=== PATIENT | female | born 1990 | race Caucasian/White ===

== ENCOUNTER → 2016-09-20 | Outpatient (CLI) | payer MEDICAID ==
--- OUTSIDE RECORDS SUMMARY | 2016-09-20 10:13 | XMS REPORT ---
Author Author Anjana Stein [facility] Address [address] [place], [place] [id number] Care Team Providers Care Jig Worker Name Role Phone Anjana Stein PCP Unavailable Allergies and Adverse Reactions Name Reaction Notes Tylenol Arthritis Pain rash (pt can take plain Tylenol) Plan of Treatment Not available. Medications Active Name Start Date Estimated Completion Date SIG Comments Vitamin oral tablet take 1 tablet by oral route once daily loratadine 10 mg oral tablet 05/21/2015 take 1 tablet (10 mg) by oral route once daily Concept OB 85-1 mg oral capsule 07/02/2015 take 1 capsule by oral route once daily hydrocortisone valerate 0.2 % topical cream 07/28/2015 apply to the affected area(s) by topical route 2 times per day Name Start Date Expiration Date SIG Comments Metrogel Vaginal 0.75 % vaginal gel 04/21/2015 04/26/2015 insert 1 applicatorful (37.5 mg) by vaginal route once daily at bedtime for 5 days Problem List Not available. Vital Signs Date Time BP-Sys(mm[Hg] BP-Sue(mm[Hg]) HR(bpm) RR(rpm) Temp WT HT HC BMI BSA BMI Percentile O2 Sat(%) 04/07/2015 9:16:00 AM 117 mmHg 71 mmHg 84 bpm 98.4 F 118.375 lbs 62 in 21.65 kg/m2 1.53 m2 Social History Name Description Comments Tobacco Current every day smoker Alcohol Current some day Denies illicit substance abuse History of Procedures Date Ordered Description Order Status 07/16/2015 12:00 AM OB US >/=14 WKS SNGL FETUS Returned 04/07/2015 12:00 AM CYTOPATH C/V THIN LAYER Returned 04/07/2015 12:00 AM SPECIMEN HANDLING OFFICE-LAB Reviewed 04/07/2015 12:00 AM N.GONORRHOEAE DNA AMP PROB Returned 04/07/2015 12:00 AM CHLAMYDIA CULTURE Returned 04/07/2015 12:00 AM HIV-1ANTIBODY Returned 04/07/2015 12:00 AM URINALYSIS AUTO W/SCOPE Returned 04/07/2015 12:00 AM OBSTETRIC PANEL Returned 04/21/2015 12:00 AM URINALYSIS AUTO W/SCOPE Returned 04/21/2015 12:00 AM DRUG SCREEN CLASS LIST A Returned Results Summary Data and Description Results 04/07/2015 10:15 AM WBC 5.4 RBC 4.16 HGB 13.0 g/dLHCT 37.10 %MCV 89.0 fLMCH 31.30 pgMCHC 35.0 g/dLRDW CV 12.20 %MPV 10.30 fLPLT 249 %NEUT 53.10 %%LYMP 36.0 %%MONO 9.60 %%EOS 1.10 %%BASO 0.20 %#NEUT 2.87 #LYMP 1.95 #MONO 0.52 #EOS 0.06 # BASO 0.01 COLOR YELLOW APPEARANCE CLEAR SPEC GRAV <=1.005 pH 6.0 PROTEIN NEGATIVE GLUCOSE NEGATIVE mg/dLKETONE NEGATIVE BILIRUBIN NEGATIVE BLOOD NEGATIVE NITRITE NEGATIVE LEUK SCREEN NEGATIVE CASTS/LPF NEGATIVE /LPFCRYSTALS NEGATIVE MUCOUS THRDS FEW BACTERIA FEW EPITH CELLS 1+ SQUAMOUS /HPFTRICHOMONAS NEGATIVE YEAST NEGATIVE HIV AG/AB COMBO 0.08 RPR Non Reactive HBsAg Screen Negative Rubella Antibodies, IgG 3.43 Index 04/21/2015 3:37 PM COLOR YELLOW APPEARANCE CLOUDY SPEC GRAV 1.015 pH 8.0 PROTEIN NEGATIVE GLUCOSE NEGATIVE mg/dLKETONE NEGATIVE BILIRUBIN NEGATIVE BLOOD NEGATIVE NITRITE NEGATIVE LEUK SCREEN NEGATIVE History Of Immunizations Not available. History of Past Illness Name Date of Onset Comments *No known medical problems Care, Other Normal Apr 07 2015 9:18AM Antepartum tobacco use same as before Apr 07 2015 9:18AM , Other Normal Apr 21 2015 11:24AM Normal , second trimester Jun 04 2015 2:47PM Normal Jun 04 2015 3:10PM Payers Insurance Name Company Name Plan Name Plan Number Policy Number Policy Group Number Start Date [facility] Comm [id number] N/A History of Encounters Visit Date Visit Type Provider 09/16/[address] Anjana Stein MD 08/25/2015 Office visit Giselle Gilman PRESS SET UP 07/28/[address] Anjana Stein MD 06/30/2015 Office visit Giselle Gilman PRESS SET UP 06/30/2015 Voided Roxanna Norman MD 06/04/2015 Office visit ROXANNA NORMAN MD 05/06/2015 Office visit ROXANNA NORMAN MD 04/21/2015 Office visit ROXANNA NORMAN MD 04/07/[address] SARAH NUÑEZ MD
--- NOTE | 2016-09-20 11:11 | Diagnostic Imaging Report ---
First trimester OB ultrasound. INDICATION: Dating. FINDINGS: There is a normal-appearing single intrauterine . An embryo is seen with cardiac activity at 146 beats per minute. The growth parameters are all around 14 weeks and 2 days. ROXY is 03/19/17. The ovaries are obscured by bowel loops. IMPRESSION: Live single intrauterine . Dictated by: Dictated on workstation # [id number]
== END ==
LOC: RAD 10:08
PROVIDERS: ATTEND Family Medicine
DX: Z34.81 Encounter for supervision of other normal pregnancy, first trimester (principal)
CPT/HCPCS: 76801

== ENCOUNTER → 2016-11-11 | Outpatient (CLI) | payer MEDICAID ==
--- NOTE | 2016-11-11 17:59 | Diagnostic Imaging Report ---
INDICATION: survey. COMPARISON: Comparison with previous ultrasound of 09/20/2016. FINDINGS: Single live intrauterine fetus. Vertex presentation. heart rate of 138 beats per minute. Placenta is fundal with no evidence of abruption. anatomical survey is normal with three-vessel cord demonstrated. Amniotic fluid index is normal. Biometric measurements are BPD 5.14 cm, head circumference 19.3 cm, abdominal circumference 17 cm, femur length 3.66 cm. Estimated weight is 451 g. IMPRESSION: A 21 weeks 5 days live intrauterine by previous ultrasound. There has been normal growth in the interim. Fetus is approximately at the 50th percentile for size. Dictated by: Dictated on workstation # [id number]
== END ==
LOC: RAD 15:14
PROVIDERS: ATTEND Family Medicine
DX: Z34.82 Encounter for supervision of other normal pregnancy, second trimester (principal)
CPT/HCPCS: 76805

== ENCOUNTER 2017-03-08 08:03 | Outpatient (CLI) | payer MEDICAID ==
[~2017-03-08] VITALS: Ht 157.5 cm; Wt 69.4 kg
[2017-03-08 08:14] VITALS: BP 131/77
[2017-03-08 09:27] VITALS: BP 117/65
[2017-03-08] MEDS ORDERED: PREN1TAB86 PO (19:20)
[2017-03-08] MEDS ORDERED: METR500T PO (19:22)
--- NOTE | 2017-03-09 08:53 | Physician Query-Final Dx ---
NEERAJ CASANOVA 03/09/17 0853: Clinic Account Progress/Dx Physician Query: Please give diagnosis Date of Service Mar 08, 2017 at 08:03 TARYN MADRIGAL MD 03/09/17 1028: Clinic Account Progress/Dx DIAGNOSIS: Diagnosis 38 week gestation TIUP Leaking fluid- ROM testing negative NEERAJ CASANOVA Mar 09, 2017 08:53 TARYN MADRIGAL MD Mar 09, 2017 10:28
[2017-03-09] MEDS ORDERED: IBUP-1773 PO (16:40)
== END 2017-03-08 09:51 | disposition home or self-care (01) ==
LOC: LDRP 08:03 → WSo 08:03
PROVIDERS: ATTEND Family Medicine
DX: Z34.83 Encounter for supervision of other normal pregnancy, third trimester (principal)
CPT/HCPCS: 87210; 99214

== ENCOUNTER 2017-03-08 17:07 | Inpatient (IN) | payer MEDICAID ==
[~2017-03-08] VITALS: Ht 157.5 cm; Wt 68.9 kg
[2017-03-08] VITALS (14 sets, daily range): BP systolic 102–147; BP diastolic 51–80
[2017-03-08] MEDS ORDERED: D5 LR IV SOLUTION 1,000 ML IV ONE (17:36)
[2017-03-08] MEDS ORDERED: MINERAL OIL CONCENTRATE 99.9% 15 ML UDC TOP PRN (18:00)
[2017-03-08] MEDS: D5 LR IV SOLUTION 1,000 ML IV SCH ×2 (18:10→22:30)
[2017-03-08 18:33] LABS: BASOPHILS % (AUTO) 0 % (0-10); EOSINOPHILS # (AUTO) 0.1 10^3/uL (0.0-0.3); EOSINOPHILS % (AUTO) 1 % (0-10); LYMPHOCYTES # (AUTO) 1.7 X 10^3 (1.0-4.0); LYMPHOCYTES % (AUTO) 17 % (12-44); MEAN CORPUSCULAR HEMOGLOBIN 29 PG (25-34); MEAN CORPUSCULAR HGB CONC 33 G/DL (32-36); MEAN CORPUSCULAR VOLUME 87 FL (80-99); MONOCYTES # (AUTO) 0.8 X 10^3 (0.0-1.0); MONOCYTES % (AUTO) 8 % (0-12); NEUTROPHILS # (AUTO) 7.3 X 10^3 (1.8-7.8); NEUTROPHILS % (AUTO) 74 % (42-75); PLATELET COUNT 190 10^3/uL (130-400); RED BLOOD COUNT 3.98 10^6/uL (4.35-5.85); RED CELL DISTRIBUTION WIDTH 12.5 % (10.0-14.5); WHITE BLOOD COUNT 9.9 10^3/uL (4.3-11.0)
[2017-03-08] MEDS ORDERED: PREN1TAB86 PO (19:20)
[2017-03-08] MEDS ORDERED: METR500T PO (19:22)
[2017-03-08] MEDS ORDERED: OXYTOCIN/NORMAL SALINE 500 ML IV ONE (21:03)
[2017-03-08] MEDS ORDERED: LIDOCAINE/EPI 1%-1:200,000 (XYLOCAINE) 30 ML VIAL ONE (21:03)
[2017-03-08] MEDS: OXYTOCIN/NORMAL SALINE 500 ML IV SCH (21:11)
--- NOTE | 2017-03-08 21:28 | History & Physical-OB ---
OB - Chief Complaint & HPI Date/Time Date of Admission: Date of Admission: Mar 08, 2017 at 5:52 pm Time Seen by Provider: 21:10 Chief Complaint/History OB-Reason for Admission/Chief: Rupture of Membranes Hx : 4 Hx Para: 3 Expected Date of Delivery: Mar 19, 2017 Gestational Age in Weeks: 38 Gestational Age in Days: 4 Other reason for admission: Patient was walking around this afternoon and had large gush of fluid. No contractions before arrival. History of Labs A+, antibody neg. RI. HepB/HIV/RPR NR. GC/chlamydia neg. GBS neg. Allergies and Home Medications Allergies Coded Allergies: Acetaminophen (Unverified Allergy, Unknown, 03/19/11) Home Medications Metronidazole 500 Mg Tablet, 500 MG PO BID, (Reported) Vit W-Ca,Fe,FA(<1 mg) 1 Each Tablet, 1 EACH PO DAILY, (Reported) OB - History Hx of Present Care: Yes Ultrasounds: Normal mid trimester US Obstetrical Complications: None Medical Complications: Other (chronic skin changes) Other Concerns: History of THC use, reportedly stopped when learning of Obstetrical History Hx : 4 Hx Para: 3 Hx # Term Pregnancies: 3 Hx # Pregnancies: 0 Number of Living Children: 3 Hx Termination: No Hx Multiple Gestation: No Hx Ectopic : No Hx Stillbirth: No Hx Complication: No Hx Induced Hypertens: No Hx Maternal Gestational Diabet: No Hx Hemorrhage: No Delivery History Hx Dystocia: No Hx Forceps Assisted Delivery: No Hx Vacuum Extraction Assisted: No Hx Placenta Abnormality: No Hx Distress: No Hx Large For Gestational Age I: No Hx Small for Gestational Age I: No Hx Section: No Hx Vaginal Delivery Post C-Sec: No Hx Blood Disorders: No Adverse Rxn to Tranfusion: No Patient Past Medical History No significant Social History/Family History HIV/AIDS: No Recent Infectious Disease Expo: No Sexually Transmitted Disease: Yes (CHLAMYDIA 2010-TREATED) Alcohol Use: Denies Use Recreational Drug Use: No Smoking Cessation: Current every day smoker Immunizations Hepatitis A: No Hepatitis B: No Tetanus Booster (TDap): Less than 5yrs Rubella: immune RPR/VDRL: Negative GBS Status: Negative HBsAG: Negative OB - Admission Exam Physical Exam Time Seen by Provider: 21:10 Vitals: Vital Signs 03/08/17 03/08/17 17:24 18:54 Temp 98.7 Pulse 88 Resp 18 B/P (MAP) 118/67 Pulse Ox 97 O2 Delivery Room Air HEENT: NCAT Abdomen: Non tender Extremities: Normal Cervical Dilatation: 6cm Effacement: 50% Station: -3 Membranes: Ruptured Amniotic Fluid: Clear Heart Rate: 130's Decelerations: Variable Decelerations Short Term Variability: Present Senior Living Variability: Average (6-25) Contractions on Admission: 6-10 Minutes Apart Intensity: Mild Labs Laboratory Tests Test 03/08/17 18:10 Range/Units White Blood Count 9.9 4.3-11.0 10^3/uL Red Blood Count 3.98 L 4.35-5.85 10^6/uL Hemoglobin 11.5 11.5-16.0 G/DL Hematocrit 35 35-52 % Mean Corpuscular Volume 87 80-99 FL Mean Corpuscular Hemoglobin 29 25-34 PG Mean Corpuscular Hemoglobin Concent 33 32-36 G/DL Red Cell Distribution Width 12.5 10.0-14.5 % Platelet Count 190 130-400 10^3/uL Mean Platelet Volume 11.0 H 7.4-10.4 FL Neutrophils (%) (Auto) 74 42-75 % Lymphocytes (%) (Auto) 17 12-44 % Monocytes (%) (Auto) 8 0-12 % Eosinophils (%) (Auto) 1 0-10 % Basophils (%) (Auto) 0 0-10 % Neutrophils # (Auto) 7.3 1.8-7.8 X 10^3 Lymphocytes # (Auto) 1.7 1.0-4.0 X 10^3 Monocytes # (Auto) 0.8 0.0-1.0 X 10^3 Eosinophils # (Auto) 0.1 0.0-0.3 10^3/uL Basophils # (Auto) 0.0 0.0-0.1 10^3/uL OB - Assessment/Plan/Diagnosis Assessment Assessment: rupture of membranes Plan Plan: Expectant Management Other Plan Expectant management initially with minimal cervical change, start pitocin per protocol Variable decelerations- recurrent, but with good variability between, monitor closely, consider amnioinfusion Copy Copies To 1: TARYN MADRIGAL MD, BETHANY N MD Mar 08, 2017 9:28 pm
[2017-03-08] MEDS ORDERED: CATHETER FLUSH 10 ML SYR IV SCH (22:00)
[2017-03-09] VITALS (42 sets, daily range): BP systolic 88–147; BP diastolic 44–82
[2017-03-09] MEDS ORDERED: LACTATED RINGERS 1,000 ML IV ONE (01:06)
[2017-03-09] MEDS: LACTATED RINGERS 1,000 ML IV ONE (01:33)
--- NOTE | 2017-03-09 02:14 | Physician Progress Note ---
Progress Note Assessment/Plan Date Seen by Provider: Mar 09, 2017 Time Seen by Provider: 01:30 Events since last exam Patient with moderate pain with contractions and urge to urinate, no other complaints currently. Has continued to have recurrent variable decelerations with contractions. For a period while sitting up they were resolved and pitocin was restarted, but after titrated to 8 mu/min, recurrent variable decelerations resumed and pitocin was stopped. Assessment/Plan at 38w5d with SROM at 1630 with failure to progress (remains 6 cm/50/-3 at this time) and recurrent variable decelerations with good variability between contractions. -Decelerations limiting use of pitocin but no cervical change in well over 2 hours, discussed risks and benefits with patient and she agrees to trial of amnioinfusion -IUPC placed without complication and 500 ml bolus of LR given at 10 mls/min, if decelerations improve will restart pitocin and decrease amnioinfusion to 100 mls/hr. Vitals Last set of Vitals Signs Vital Signs Date Time Temp Pulse Resp B/P (MAP) Pulse Ox O2 Delivery O2 Flow Rate FiO2 03/09/17 00:15 96 18 141/76 Room Air 03/08/17 22:30 98.2 03/08/17 17:24 97 Labs Laboratory Tests 03/08/17 18:10: White Blood Count 9.9, Red Blood Count 3.98L, Hemoglobin 11.5, Hematocrit 35, Mean Corpuscular Volume 87, Mean Corpuscular Hemoglobin 29, Mean Corpuscular Hemoglobin Concent 33, Red Cell Distribution Width 12.5, Platelet Count 190, Mean Platelet Volume 11.0H, Neutrophils (%) (Auto) 74, Lymphocytes (%) (Auto) 17 , Monocytes (%) (Auto) 8, Eosinophils (%) (Auto) 1, Basophils (%) (Auto) 0, Neutrophils # (Auto) 7.3, Lymphocytes # (Auto) 1.7, Monocytes # (Auto) 0.8, Eosinophils # (Auto) 0.1, Basophils # (Auto) 0.0 Clinical Quality Measures DVT/VTE Risk/Contraindication: Risk Factor Score Per Nursin RFS Level Per Nursing on Admit: 2=Moderate TARYN MADRIGAL MD Mar 09, 2017 2:14 am
[2017-03-09] MEDS: D5 LR IV SOLUTION 1,000 ML IV SCH (02:40)
[2017-03-09] MEDS ORDERED: SUFENTA 0.6MCG/ML BUPIVA 0.125 100 ML ONE (03:22)
[2017-03-09] MEDS ORDERED: LACTATED RINGERS 1,000 ML IV SCH (04:38)
[2017-03-09] MEDS ORDERED: diphenhydrAMINE 50 MG/ML INJ (BENADRYL) IV PRN (04:45)
[2017-03-09] MEDS ORDERED: METOCLOPRAMIDE INJ 10 MG/2 ML (REGLAN) IV PRN (04:45)
[2017-03-09] MEDS ORDERED: ONDANSETRON 4 MG/2 ML (SDV) Z0FRAN IV PRN (04:45)
[2017-03-09] MEDS ORDERED: NALOXONE 0.4 MG/ML 1 ML (NARCAN) VIAL IV PRN ×2 (04:45)
[2017-03-09] MEDS ORDERED: EPIDURAL (SUFENTA 0.6MCG/ML BUPIVA 0.125%) 100 ML BAG EPI SCH (04:45)
--- NOTE | 2017-03-09 07:19 | OB Labor & Delivery Record ---
Vag Delivery Note Vag Delivery Note Date of Delivery: 03/09/17 Preoperative Diagnosis: Linus Butt is a (24 /Para 4 / 3, Gestational Age (wks)38with 5d Postoperative Diagnosis: Same Surgeon: TARYN MADRIGAL Hunting Sales Leader: Kacey Gross, MS3 Anesthesia: Epidural Delivery Type: spontaneous vaginal Findings: Viable female , apgars 8/9, weight 6#5 Lacerations: none Intact placenta with 3 vessel cord. No nuchal cord, body cord or shoulder dystocia Estimated Blood Loss: 250 ml Complications: None Condition: Stable Description of Procedure: The patient presented after SROM. She was admitted and informed consent was obtained. Her labor course was remarkable for recurrent variable decelerations with contractions and slow cervical change. She progressed to complete dilatation and began to push. She was then set up for delivery. The infant's head was delivered atraumatically in the POONAM position. The shoulders and remainder of the infant's body were then delivered without difficulty. Upon delivery, the was placed on maternal abdomen. The cord was doubly clamped and cut and the was handed off to the pediatric staff. An intact placenta with 3-vessel cord delivered via Heard and there was found to be minimal bleeding.~ Vigorous fundal massage was performed and the fundus was found to be firm. IV oxytocin was given. Examination of the vagina and perineum revealed a periurethral abrasion not requiring repair. Mom and baby were both in stable condition in the labor suite. Vitals - Labs Vital Signs - I&O Vital Signs Date Time Temp Pulse Resp B/P (MAP) Pulse Ox O2 Delivery O2 Flow Rate FiO2 03/09/17 03:00 105 18 130/79 98 Room Air 03/09/17 02:45 99 18 140/82 99 Room Air 03/09/17 02:30 98.4 90 18 129/74 100 Room Air 03/09/17 02:15 86 18 114/54 99 Room Air 03/09/17 02:00 94 18 136/78 99 Room Air 03/09/17 01:45 110 18 118/60 99 Room Air 03/09/17 01:30 103 18 100 Room Air 03/09/17 01:15 90 18 114/59 98 Room Air 03/09/17 01:00 98 18 130/60 100 Room Air 03/09/17 00:45 77 18 129/70 100 Room Air 03/09/17 00:30 103 18 133/72 100 Room Air 03/09/17 00:15 96 18 141/76 Room Air 03/09/17 00:00 82 18 127/72 Room Air 03/08/17 23:45 89 18 128/78 Room Air 03/08/17 23:30 94 18 147/75 Room Air 03/08/17 23:15 18 Room Air 03/08/17 23:00 78 18 121/66 Room Air 03/08/17 22:30 98.2 91 18 106/56 Room Air 03/08/17 22:00 82 18 136/80 Room Air 03/08/17 21:45 18 Room Air 03/08/17 21:30 83 18 115/68 Room Air 03/08/17 21:15 18 Room Air 03/08/17 21:00 85 18 110/66 Room Air 03/08/17 20:30 98.2 71 18 121/61 Room Air 03/08/17 20:00 83 18 116/64 Room Air 03/08/17 19:30 77 18 102/51 Room Air 03/08/17 18:54 88 18 118/67 Room Air 03/08/17 18:25 84 18 124/60 Room Air 03/08/17 17:55 81 18 120/67 Room Air 03/08/17 17:24 98.7 93 18 132/66 97 Room Air Labs Laboratory Tests 03/08/17 18:10: White Blood Count 9.9, Red Blood Count 3.98L, Hemoglobin 11.5, Hematocrit 35, Mean Corpuscular Volume 87, Mean Corpuscular Hemoglobin 29, Mean Corpuscular Hemoglobin Concent 33, Red Cell Distribution Width 12.5, Platelet Count 190, Mean Platelet Volume 11.0H, Neutrophils (%) (Auto) 74, Lymphocytes (%) (Auto) 17 , Monocytes (%) (Auto) 8, Eosinophils (%) (Auto) 1, Basophils (%) (Auto) 0, Neutrophils # (Auto) 7.3, Lymphocytes # (Auto) 1.7, Monocytes # (Auto) 0.8, Eosinophils # (Auto) 0.1, Basophils # (Auto) 0.0 TARYN MADRIGAL MD Mar 09, 2017 7:19 am
[2017-03-09] MEDS: OXYTOCIN/NORMAL SALINE 500 ML IV SCH (07:38)
[2017-03-09] MEDS ORDERED: OXYTOCIN/NORMAL SALINE 500 ML IV SCH (09:24)
[2017-03-09] MEDS ORDERED: BENZOCAINE/MENTHOL (DERMOPLAST) 56 ML CAN TP PRN (09:30)
[2017-03-09] MEDS ORDERED: TETANUS,DIPTH,PERTUSS P/F (BOOSTRIX) 0.5 ML VIAL IM ONE (09:30)
[2017-03-09] MEDS ORDERED: MEASLES,MUMPS,RUBELLA 1 EA INJ SQ ONE (09:30)
[2017-03-09] MEDS ORDERED: WITCH HAZEL(TUCKS) 40 EA JAR TOP PRN (09:30)
[2017-03-09] MEDS: IBUPROFEN 600 MG (MOTRIN) TAB PO SCH ×2 (11:07→18:14)
[2017-03-09] MEDS ORDERED: CATHETER FLUSH 10 ML SYR IV SCH (14:00)
[2017-03-09] MEDS ORDERED: IBUP-1773 PO (16:40)
[2017-03-10] MEDS: IBUPROFEN 600 MG (MOTRIN) TAB PO SCH ×3 (00:22→12:00)
[2017-03-10 00:39] VITALS: BP 125/71
[2017-03-10] MEDS: LACTATED RINGERS 1,000 ML IV ONE (01:33)
[2017-03-10] MEDS ORDERED: PRENATAL VITAMIN 1 EA TAB PO SCH (07:00)
[2017-03-10 07:48] VITALS: BP 113/74
[2017-03-10 08:23] LABS: BASOPHILS % (AUTO) 0 % (0-10); EOSINOPHILS # (AUTO) 0.1 10^3/uL (0.0-0.3); EOSINOPHILS % (AUTO) 1 % (0-10); LYMPHOCYTES # (AUTO) 2.2 X 10^3 (1.0-4.0); LYMPHOCYTES % (AUTO) 30 % (12-44); MEAN CORPUSCULAR HEMOGLOBIN 29 PG (25-34); MEAN CORPUSCULAR HGB CONC 32 G/DL (32-36); MEAN CORPUSCULAR VOLUME 89 FL (80-99); MEAN PLATELET VOLUME 10.7 FL (7.4-10.4); MONOCYTES # (AUTO) 0.7 X 10^3 (0.0-1.0); MONOCYTES % (AUTO) 10 % (0-12); NEUTROPHILS # (AUTO) 4.4 X 10^3 (1.8-7.8); NEUTROPHILS % (AUTO) 60 % (42-75); PLATELET COUNT 151 10^3/uL (130-400); RED BLOOD COUNT 3.63 10^6/uL (4.35-5.85); RED CELL DISTRIBUTION WIDTH 12.6 % (10.0-14.5); WHITE BLOOD COUNT 7.3 10^3/uL (4.3-11.0)
--- NOTE | 2017-03-10 10:51 | Discharge Instructions ---
Discharge Inst-Women's Serv Depart Medications New, Converted or Re-Newed RX: Transmitted to Pharmacy New Medications: Ibuprofen (Ibuprofen) 600 Mg Tablet 600 MG PO Q6H, #60 TAB 0 Refills Continued Medications: Metronidazole (Flagyl) 500 Mg Tablet 500 MG PO BID, TAB Vit W-Ca,Fe,FA(<1 mg) ( Vitamins) 1 Each Tablet 1 EACH PO DAILY, TAB Follow Up/Instructions Goal/Follow Up: Follow up with Dr. Heller in 6 weeks for visit. Activity Activity: Activity as Tolerated (avoid strenuous activity x 6 weeks) Driving Instructions: You May Drive Nothing Inside Vagina: No Douching, No [place], No Tampons Diet Discharge Diet: No Restrictions Symptoms to Report to : Swelling Increased, Bleeding Excessive, Fever Over 101 Degrees F, Pain/Pressure in Chest, Vaginal Bleeding Increase, Cramps in Feet or Legs, Vaginal Discharge Foul, Dizziness/Fainting, Shortness of Breath For Any Problems or Questions: Contact Your Physician Copies To 1: TARYN HELLER MD, BETHANY N MD Mar 09, 2017 4:41 pm
--- NOTE | 2017-03-10 10:56 | Discharge Summary ---
Diagnosis/Chief Complaint Date of Admission Mar 08, 2017 at 17:52 Date of Discharge Mar 10, 2017 Admission Diagnosis Admission Diagnosis Spontaneous premature rupture of membranes Term intrauterine at 38 weeks A+ blood type RI GBS neg Discharge Diagnosis s/p spontaneous vaginal delivery with no perineal lacerations asymptomatic anemia Blood type A+ RI Chief Complaint/HPI Chief Complaint/HPI 26 yo at 38w3d presented to L&D after SROM while shopping just before arrival. No contractions prior to arrival. Discharge Summary-Simple/Stand Procedures Spontaneous vaginal delivery Discharge Physical Examination Allergies: Coded Allergies: Acetaminophen (Unverified Allergy, Unknown, 03/19/11) Vitals & I&Os Vital Sign - Last 12Hours Date Time Temp Pulse Resp B/P (MAP) Pulse Ox O2 Delivery O2 Flow Rate FiO2 03/10/17 00:39 98.4 69 18 125/71 97 Room Air General Appearance: Alert, No Acute Distress Respiratory: Clear to Auscultation, Normal Air Movement Cardiovascular: Regular Rate, No Murmurs Abdominal: Other (fundus firm at umbilicus) Extremities: No Edema Neuro: Normal Speech Psych/Mental Status: Mental Status NL Hospital Course Patient admitted and progressed through labor quite slowly and had variable decelerations throughout with contractions, limiting ability to use pitocin. However, she did eventually progress to complete dilation and delivered vaginally without complication or laceration a viable female with no complications. course uncomplicated, voided, ambulated, tolerated diet without difficulty. Asymptomatic mild anemia not requiring treatment. Discharge Instructions to patient/family Please see electonic discharge instructions given to patient. Discharge Medications Reviewed and agree with Discharge Medication list on patient's Discharge Instruction sheet Clinical Quality Measures DVT/VTE Risk/Contraindication: Risk Factor Score Per Nursin RFS Level Per Nursing on Admit: 2=Moderate Copy Copies To 1: TARYN MADRIGAL MD, BETHANY N MD Mar 10, 2017 10:56
[2017-03-10 13:20] VITALS: BP 114/71
== END 2017-03-10 17:50 | disposition home or self-care (01) | DRG 775 ==
LOC: WSo 17:07 → LDRP 17:07 → WSo 17:52 → LDRP 17:52 → ENPENDDIS 03-10 12:00
PROVIDERS: ADMIT Family Medicine; ATTEND Family Medicine
PROC: 3E0E37Z Introduction of Electrolytic and Water Balance Substance into Products of Conception, Percutaneous Approach (ICD-10-PCS; principal; 2017-03-09)
PROC: 10E0XZZ Delivery of Products of Conception, External Approach (ICD-10-PCS; principal; 2017-03-09)
DX: O76 Abnormality in fetal heart rate and rhythm complicating labor and delivery (principal); O99.333 Smoking (tobacco) complicating pregnancy, third trimester; F17.210 Nicotine dependence, cigarettes, uncomplicated; O99.03 Anemia complicating the puerperium; D64.9 Anemia, unspecified; Z3A.38 38 weeks gestation of pregnancy; Z37.0 Single live birth
CPT/HCPCS: 36415; 85025; 86850; 86900; 86901; 88307; 99212

== ENCOUNTER → 2017-05-26 | Outpatient (CLI) | payer MEDICAID ==
[~2017-05-26] MED LIST: IBUP-1773 PO; METR500T PO; PREN1TAB86 PO
== END ==
LOC: LAB 17:04
PROVIDERS: ATTEND Family Medicine
DX: L95.0 Livedoid vasculitis (principal); L81.0 Postinflammatory hyperpigmentation; L85.3 Xerosis cutis
CPT/HCPCS: 36415; 86038; 86430

== ENCOUNTER → 2018-10-06 | Outpatient (CLI) | payer MEDICAID ==
--- NOTE | 2018-10-06 17:12 | Diagnostic Imaging Report ---
INDICATION: survey. TECHNIQUE: Multiple real-time grayscale images were obtained over the gravid uterus. COMPARISON: None. FINDINGS: There is a single living intrauterine . The fetus is in a cephalic presentation. Placenta is anterior. There is no previa. The biometry correlates with a gestational age of 21 weeks 2 days. Heart rate is 156 beats per minute and regular. Estimated weight is 405 g. The maternal adnexa is unremarkable. There is no free fluid. IMPRESSION: Single living intrauterine with sonographically estimated gestational age of 21 weeks 2 days and estimated date of confinement of 02/14/2019. Biometrical measurements are as follows: Biparietal 5.03 cm, age 21 weeks 2 days. Head circumference 18.98 cm, age 21 weeks 2 days. Abdominal circumference 16.92 cm, age 22 weeks 0 days. Femur length 3.28 cm, age 20 weeks 2 days. Sonographic estimate age: 21 weeks 2 days. Sonographic estimated date of delivery: 02/14/2019. Estimated Weight: 405 gm (+/- 59 gm). LMP percentile: 31%. heart rate: 156 beats per minute. number: 1 of 1. Dictated by: Dictated on workstation # [id number]
== END ==
LOC: RAD 12:07
PROVIDERS: ATTEND Obstetrics & Gynecology
DX: Z36.89 Encounter for other specified antenatal screening (principal); Z3A.21 21 weeks gestation of pregnancy
CPT/HCPCS: 76805

== ENCOUNTER 2019-01-22 20:15 | Outpatient (CLI) | payer MEDICAID ==
[~2019-01-22] VITALS: Ht 157.5 cm; Wt 69.5 kg
--- NOTE | 2019-01-22 20:16 | NUR ---
ALEXANDRIA FRIEDMAN presented to unit via ambulation from ED, accompanied by SO, with c/o CONTRACTIONS. ALEXANDRIA FRIEDMAN weighed, gowned, voided, and to bed. EFHM and TOCO applied, VS taken. ALEXANDRIA FRIEDMAN oriented to bed controls, call light, TV, heat, and A/C controls.
[2019-01-22 20:36] LABS: CLARITY,URINE CLEAR; COLOR,URINE YELLOW; GLUCOSE, URINE (UA) NEGATIVE (NEGATIVE); KETONES,URINE 4+ (NEGATIVE); LEUKOCYTE ESTERASE ,URINE 1+ (NEGATIVE); NITRITE,URINE NEGATIVE (NEGATIVE); PH,URINE 6 (5-9); PROTEIN,URINE 1+ (NEGATIVE); UROBILINOGEN,URINE 1 MG/DL (NORMAL)
[2019-01-22 20:38] VITALS: BP 111/64
[2019-01-22 20:59] LABS: BACTERIA,URINE TRACE /HPF; BILIRUBIN,URINE 1+ (NEGATIVE); WBC,URINE 0-2 /HPF
[2019-01-22] MEDS ORDERED: LACTATED RINGERS 1,000 ML IV SCH (21:30)
[2019-01-22] MEDS ORDERED: CALCIUM CARBONATE 500 MG (TUMS) TAB.CHEW ONE (23:14)
[2019-01-22] MEDS ORDERED: CALCIUM CARBONATE 500 MG (TUMS) TAB.CHEW PO ONE (23:30)
== END 2019-01-22 23:25 | disposition home or self-care (01) ==
LOC: WSo 20:15 → LDRP 20:15 → WSo 23:25
PROVIDERS: ATTEND Obstetrics & Gynecology
DX: O47.03 False labor before 37 completed weeks of gestation, third trimester (principal); Z3A.36 36 weeks gestation of pregnancy
CPT/HCPCS: 81000; 87088; 96360; 99214

== ENCOUNTER 2019-02-06 07:00 | Inpatient (IN) | payer MEDICAID ==
[2019-02-06] VITALS (41 sets, daily range): BP systolic 102–136; BP diastolic 55–86
[~2019-02-06] VITALS: Ht 157.5 cm; Wt 69.9 kg
--- NOTE | 2019-02-06 07:00 | NUR ---
ALEXANDRIA FRIEDMAN presented to unit via AMBULATORY from HOME, accompanied by S/O FOR INDUCTION OF LABOR. ALEXANDRIA FRIEDMAN weighed, gowned, voided, and to bed. EFHM and TOCO applied, VS taken. ALEXANDRIA FRIEDMAN oriented to bed controls, call light, TV, heat, and A/C controls.
[2019-02-06] MEDS ORDERED: D5 LR IV SOLUTION 1,000 ML IV SCH (07:29)
[2019-02-06] MEDS ORDERED: MINERAL OIL CONCENTRATE 99.9% 15 ML UDC TOP PRN (07:30)
[2019-02-06] MEDS ORDERED: D5 LR IV SOLUTION 1,000 ML IV ONE (07:32)
[2019-02-06 08:31] LABS: BASOPHILS % (AUTO) 0 % (0-10); EOSINOPHILS # (AUTO) 0.1 10^3/uL (0.0-0.3); EOSINOPHILS % (AUTO) 1 % (0-10); HEMATOCRIT 31 % (35-52); HEMOGLOBIN 10.6 G/DL (11.5-16.0); LYMPHOCYTES # (AUTO) 2.4 X 10^3 (1.0-4.0); LYMPHOCYTES % (AUTO) 22 % (12-44); MEAN CORPUSCULAR HEMOGLOBIN 31 PG (25-34); MEAN CORPUSCULAR HGB CONC 34 G/DL (32-36); MEAN CORPUSCULAR VOLUME 90 FL (80-99); MEAN PLATELET VOLUME 10.8 FL (7.4-10.4); MONOCYTES % (AUTO) 9 % (0-12); NEUTROPHILS # (AUTO) 7.6 X 10^3 (1.8-7.8); NEUTROPHILS % (AUTO) 68 % (42-75); PLATELET COUNT 195 10^3/uL (130-400); RED CELL DISTRIBUTION WIDTH 13.5 % (10.0-14.5); WHITE BLOOD COUNT 11.1 10^3/uL (4.3-11.0)
--- OUTSIDE RECORDS SUMMARY | 2019-02-06 10:13 | XMS REPORT | CCD ---
Author Author EDGAR THIBODEAUX Unknown Address [address] [address] [place], [place] [id number] Care Team Providers Care Speed Belt Sander Name Role Phone ANJANA DURAN MD Attphys G.ELIJAH NASST A.DEEPA NASST N., DALY NASST Vital Signs Vital Sign Value Unit Date/Time Recent/Initial? Weight Measured 145 lbs 12/01/2015 09:49 Initial VS Height 62 in 12/01/2015 09:49 Initial VS BMI (Body Mass Index) 26.52 kg/m^2 12/01/2015 09:49 Initial VS BSA (Body Surface Area) 1.7 m^2 12/01/2015 09:49 Initial VS BP Systolic 114 mmHg 12/01/2015 09:49 Initial VS BP Diastolic 54 mmHg 12/01/2015 09:49 Initial VS Heart Rate 89 bpm 12/01/2015 09:49 Initial VS Respiratory Rate 18 bpm 12/01/2015 18:41 Initial VS O2 % BldC Oximetry 100 % 12/01/2015 18:41 Initial VS Body Temperature 98.2 degrees 12/01/2015 18:41 Initial VS BP Systolic 123 mmHg 12/03/2015 09:15 Most Recent VS BP Diastolic 76 mmHg 12/03/2015 09:15 Most Recent VS Respiratory Rate 18 bpm 12/03/2015 09:15 Most Recent VS Heart Rate 89 bpm 12/03/2015 09:15 Most Recent VS O2 % BldC Oximetry 100 % 12/03/2015 09:15 Most Recent VS Body Temperature 97.6 degrees 12/03/2015 09:15 Most Recent VS Allergies Allergy Code Allergy Type Reaction Status TYLENOL ARTHRITIS 0 Drug allergy HIVES Active Procedures Procedure Code Procedure Type Date Delivery of Products of Conception, External Approach [id number] ICD- 10 PCS 12/01/[address] 12/02/2015 TYPE AND SCREEN 93163759 SNOMED CT 12/01/2015 CBC W/ AUTO DIFF (RFLX MAN DIFF IF IND) [id number] SNOMED CT 12/01/2015 AMNISURE ROM 752848041 SNOMED CT 12/01/2015 ^CBC W/AUTO DIFF 0938459 SNOMED CT 12/01/2015 History of Immunizations Immunization Code Date HPV, quadrivalent 62 01/02/2008 Tdap 115 11/06/2015 Problems Problem Code Start Date Resolved Date Status [id number] 12/01/2015 Active Results CBC W/ AUTO DIFF (RFLX MAN DIFF IF IND) - Collect Date/Time: 12/01/2015 08:45 Test Name Code Test Result Test Units Test Ref Range WBC 23208-9 12.5 TH/CMM L=4.5 H=10.8 RBC 789-8 3.61 ML/CMM L=4.20 H=5.40 HGB 718-7 11.2 G/DL L=12.0 H=16.0 HCT 4544-3 33.5 % L=37.0 H=47.0 MCV 93 FL L=81 H=99 MCH 31.0 PG L=27.0 H=33.0 MCHC 33.4 G/DL L=31.0 H=36.0 RDW SD 44 FL L=36 H=50 RDW CV 13.1 % L=0.0 H=14.8 MPV 10.2 FL L=9.3 H=12.5 PLT 777-3 162 TH/CMM L=130 H=440 NRBC# 0.00 TH/CMM L=0.00 H=0.00 NRBC% 0.0 /100WBC L=0.0 H=2.0 %NEUT 75.9 % %LYMP 15.4 % %MONO 7.4 % %EOS 0.2 % %BASO 0.2 % #NEUT 9.51 TH/CMM L=2.10 H=8.20 #LYMP 1.93 TH/CMM L=0.90 H=5.20 #MONO 0.93 TH/CMM L=0.16 H=1.00 #EOS 0.03 TH/CMM L=0.00 H=0.80 #BASO 0.03 TH/CMM L=0.00 H=0.20 MANUAL DIFF NOT IND N/A HEMOGRAM - Collect Date/Time: 12/02/2015 06:25 Test Name Code Test Result Test Units Test Ref Range WBC 87196-0 13.5 TH/CMM L=4.5 H=10.8 RBC 789-8 3.32 ML/CMM L=4.20 H=5.40 HGB 718-7 10.3 G/DL L=12.0 H=16.0 HCT 4544-3 30.9 % L=37.0 H=47.0 MCV 93 FL L=81 H=99 MCH 31.0 PG L=27.0 H=33.0 MCHC 33.3 G/DL L=31.0 H=36.0 RDW SD 44 FL L=36 H=50 RDW CV 12.9 % L=0.0 H=14.8 MPV 10.3 FL L=9.3 H=12.5 PLT 777-3 154 TH/CMM L=130 H=440 NRBC# 0.00 TH/CMM L=0.00 H=0.00 NRBC% 0.0 /100WBC L=0.0 H=2.0 AMNISURE ROM - Collect Date/Time: 12/01/2015 08:13 Test Name Code Test Result Test Units Test Ref Range AMNISURE ROM 75817-8 POSITIVE N/A NL: NEGATIVE TYPE AND SCREEN - Collect Date/Time: 12/01/2015 08:45 Test Name Code Test Result Test Units Test Ref Range ABO/Rh Type A Positive N/A Antibody Screen-Gel Negative N/A Active Medications Medication Code Dose Units Frequency Route Modification Start Date/Time Ibuprofen 800MG Oral Tablet 958253 800 MILLIGRAMS NEEDED EVERY 8 HR BY MOUTH 12/03/2015 09:31 Prescription Detail 800 MILLIGRAMS BY MOUTH NEEDED EVERY 8 HR Lanolin Hydrous GRX Topical application Ointment 262287 1 EACH NEEDED TOPICAL APPLICATION 12/03/2015 09:31 Prescription Detail 1 EACH TOPICAL APPLICATION NEEDED Medications Administered During Visit Medication Dose Units Frequency Route Date/Time of Last Dose IBUPROFEN (MOTRIN) TAB:800 MG 800 MG Q8H PO 12/02/2015 13:52 DOCUSATE SODIUM 100 MG [COLACE] CAPSULE 100 MG PRN PO 12/02/2015 21:41 LANOLIN HYDROUS GRX TOPICAL OINTMENT 1 EA PRN TOPICAL 12/02/2015 13:53 Encounters Encounter Diagnosis Diagnosis Code Start Date Smoking (tobacco) complicating , unspecified trimester M15749 12/01/2015 Social History Smoking Status Code Start Date End Date Never smoker [id number] Patient Decision Aids Unknown or Not Available. Discharge Instructions You were admitted to [facility] on 12/01/2015 08:30 with a principal diagnosis of Smoking (tobacco) complicating , unspecified trimester You had the following procedures done: Delivery of Products of Conception, External Approach You had the following tests done: AMNISURE ROM CBC W/ AUTO DIFF (RFLX MAN DIFF IF IND) HEMOGRAM TYPE AND SCREEN You were discharged from [facility] on 12/03/2015 13:10 Should you have any questions prior to discharge, please contact a member of your healthcare team. If you have left the hospital and have any questions, please contact your primary care physician. DIET: REGULAR, Drink plenty of fluids, As tolerated, Increase fiber. Avoid caffeinated beverages, Avoid alcohol. Eat high iron foods: grn vegs, red meats. HOME MEDICATION INSTRUCTIONS: Continue taking your vitamins, Continue Home Meds as listed above. Call doc before taking new or OTC meds. IF : Breastfeed on demand, Incr flds and cals to promote mlk prdctn. Avoid spicy/gas producing foods, Exprs milk every 3-4 hrs if unable to BF. If breast engorgement occurs:, apply moist heat/massage/or icepacks. Wear supportive bra, Ensure areola latch 1- 1.5"past nipple. Observe for cracked and bleeding nipples. Use "soothies"for sore or cracked nipple. Use tea bags for sore or cracked nipples. Colostrum to nipples after each feed. ACTIVITIES: Rest as possible, Limit walking,standing & stair climbing, No heavy lifting. Gradually resume normal activity. HYGIENE: May shower, Use hill-bottle with Betasept:. after each urine and BM until flow stops. Change pads with each urination or BM. BOWEL MOVEMENTS Stool softeners as needed, Avoid constipation. May take senokot, Milk of Magnesia. SEXUAL ACTIVITY Refrain from intercourse until pp exam. [id number] Abdominal exercises in 3-4 wks, Start slowly and increase as gaston. Post blues; Hormonal changes You may have emotional changes, You may be tearful. This shouldn't last more than 2-3 wks, Call physician if you are concerned. PAIN MANAGEMENT Non drug pain control methods, When to contact physician. NOTIFY PHYSICIAN OF: Chills, fever, painful urination, foul- smelling vaginal discharge. bleeding more than a period, temperature is greater than 100.4. dizziness or fainting, Painful breasts, Red, hot and extremely HARD breasts. redness or drainage from incision, unreli eved pain with medication. nausea or vomiting, cough or shortness of breath. cramping or swelling of legs. RELEVANT CONTACT INFORMATION: Dr. Anjana Duran: [phone]. FOLLOW-UP: PLEASE MAKE FOLLOW UP WITH IN 6 WEEKS SPECIAL INSTRUCTIONS: If you receive a Rubella vaccine:, is not recommended for 3 mnths. If you have cold/canker sores:, do not kiss/nuzzle NB til lesions clear. Wear binder as desires. PATIENT PORTAL EDUCATION INFO PROVIDED? YES, patient verbalized understanding. PATIENT PORTAL DEMONSTRATION PERFORMED? YES, patient verbalized understanding. DISCHARGED TO: Home. MODE OF TRANSPORTATION: Car. ACCOMPANIED BY: , infant placed in car seat. PERSONAL EFFECTS/VALUABLES SENT HOME: Yes. IMPORTANT: INSURE YOUR BABY! Provided info on need to insure baby!. PATIENT/FAMILY UNDERSTANDS INSTRUCTIONS: Verbalizes. SMOKING CESSATION: Smoking and second hand smoke is harmful, to your health. Smoking has been linked to cancer, cardiac disease, COPD, and asthma. For more information you can call:, 9-930-BWJ-STOP, or 6-361-OUHYEntia BiosciencesUSA. A pamphlet on smoking was given to you, at admission. CONTROL Discuss with dr at 4-6 wk pp visit. Chief Complaint and Reason For Visit Chief Complaint Date of Onset CONTRACTIONS Function Status Unknown or Not Available. Plan of Care Unknown or Not Available. Referral/Transition of Care Unknown or Not Available.
--- OUTSIDE RECORDS SUMMARY | 2019-02-06 10:14 | XMS REPORT ---
Author Author Anjana Stein [facility] Address [address] [place], [place] [address] Care Team Providers Care Mortuary Operations Manager Name Role Phone Anjana Stein PCP Unavailable [...] 1 capsule by oral route once daily Name Start Date Expiration Date SIG Comments [...] 2.87 #LYMP 1.95 #MONO 0.52 #EOS 0.06 #BASO 0.01 COLOR YELLOW APPEARANCE CLEAR SPEC GRAV [...] Policy Number Policy Group Number Start Date [facility] - [facility] [place] Comm [id number] N/A History of Encounters Visit Date Visit Type Provider 07/28/[address] Anjana Stein MD 06/30/2015 Office visit Giselle Gilman DIVORCE ATTORNEY 06/30/2015 Voided Roxanna Norman MD 06/04/2015 Office visit ROXANNA NORMAN MD 05/06/2015 Office visit ROXANNA NORMAN MD 04/21/2015 Office visit ROXANNA NORMAN MD 04/07/[address] SARAH NUÑEZ MD
--- OUTSIDE RECORDS SUMMARY | 2019-02-06 10:14 | XMS REPORT | Referral Summary ---
Author Author [facility] [place] Organization [facility] [place] Address Unknown Phone Unavailable Encounter VC Date(s): 11/03/15 - 11/03/15 [facility] [place] [address] [place], [place] [address] Discharge Diagnosis: Maternal parvovirus infection, antepartum Discharge Diagnosis: Tobacco use Discharge Disposition: 01-Home or Self Care Attending Physician: Manas Urrutia MD Admitting Physician: Manas Urrutia MD Vital Signs Most recent to 1 oldest [Reference Range]: Peripheral Pulse 98 bpm Rate [60-100 bpm] (11/03/15 10:32 AM) Blood Pressure 126/73 mmHg [90-140/60-90 mmHg] (11/03/15 10:32 AM) Problem List Condition Effective Dates Status Health Status Informant (Confirmed) 09/21/10 - 06/21/11 Resolved (Confirmed) 06/16/09 - 03/16/10 Resolved Tobacco Active patient use(Confirmed) Allergies, Adverse Reactions, Alerts No Known Medication Allergies Medications Iron-150 tabs, Oral, Daily, 0 Refill(s) Start Date: 11/03/15 Status: Ordered Multivitamins with Vitamin B Complex, Vitamin C, Minerals and L-Methylf olate oral capsule 1 caps, Oral, Daily, # 30 caps, 0 Refill(s) Start Date: 11/03/15 Status: Ordered Results No data available for this section Immunizations No data available for this section Procedures No data available for this section Social History Social History Type Response Smoking Status Current every day smoker; Type: Cigarettes; Tobacco use per day: Less than Pack Assessment and Plan No data available for this section
--- OUTSIDE RECORDS SUMMARY | 2019-02-06 10:14 | XMS REPORT ---
Author Author Anjana Stein [facility] Address [address] [place], [place] [address] Care Team Providers Care Summer School Coordinator Name Role Phone Anjana Stein PCP Unavailable Allergies and Adverse Reactions Name Reaction Notes Tylenol Arthritis Pain rash (pt can take plain Tylenol) Plan of Treatment Planned Activity Comments Planned Date Planned Time Plan/Goal IMMUNIZATION ADMIN 11/06/2015 12:00 AM Positive parvovirus 11/03/2015 10:30 AM Medications Active Name Start Date Estimated Completion Date SIG Comments Vitamin oral tablet take 1 tablet by oral route once daily loratadine 10 mg oral tablet 05/21/2015 take 1 tablet (10 mg) by oral route once daily Concept OB 85-1 mg oral capsule 07/02/2015 take 1 capsule by oral route once daily ferrous sulfate 325 mg (65 mg iron) oral tablet 10/09/2015 take 1 tablet by oral route 2 times a day hydrocortisone valerate 0.2 % topical cream 11/13/2015 apply to the affected area(s) by topical route 2 times per day Vistaril 25 mg oral capsule 11/13/2015 take 1 capsule (25 mg) by oral route up to3 times per day as needed for itching amoxicillin 500 mg oral capsule 11/13/2015 11/23/2015 take 1 capsule (500 mg) by oral route 3 times per day for 10 days Name Start Date Expiration Date SIG Comments [...] OB US >/=14 WKS SNGL FETUS Returned 09/16/2015 12:00 AM Type and screen Returned 09/16/2015 12:00 AM GLUCOSE TOLERANCE TEST (GTT) Returned 09/16/2015 12:00 AM COMPLETE CBC W/AUTO DIFF WBC Returned 11/06/2015 12:00 AM CULTURE SCREEN ONLY Returned 11/06/2015 12:00 AM TDAP VACCINE 7 YRS/> IM Reviewed 04/07/2015 12:00 AM CYTOPATH C/V THIN LAYER [...] BLOOD NEGATIVE NITRITE NEGATIVE LEUK SCREEN NEGATIVE 09/16/2015 3:16 PM WBC 7.5 RBC 3.63 HGB 11.30 g/dLHCT 33.0 %MCV 91.0 fLMCH 31.10 pgMCHC 34.20 g/dLRDW CV 12.90 %MPV 9.80 fLPLT 187 %NEUT 72.80 %%LYMP 19.10 %%MONO 7.70 %%EOS 0.30 %%BASO 0.10 %#NEUT 5.49 #LYMP 1.44 #MONO 0.58 #EOS 0.02 #BASO 0.01 History Of Immunizations Name Date Admin Mfg Name Mfg Code Trade Name Lot# Route Inj Vis Given Vis Pub CVX Tdap 11/06/2015 GlaxoSmithTracour SKB BOOSTRIX [id number] Intramuscular Left Deltoid 11/06/2015 10/01/2014 115 History of Past Illness Name Date of Onset Comments *No known medical problems Care, Other Normal Apr 07 2015 9:18AM Antepartum tobacco use same as before Apr 07 2015 9:18AM , Other Normal Apr 21 2015 11:24AM Normal , second trimester Jun 04 2015 2:47PM Normal Jun 04 2015 3:10PM , Other Normal Sep 16 2015 2:04PM Group B Strep Screening, Nov 06 2015 4:24PM Normal in multigravida in third trimester Nov 06 2015 4:24PM Need for Tdap vaccine Nov 06 2015 4:30PM Payers Insurance Name Company Name Plan Name Plan Number Policy Number Policy Group Number Start Date [facility] Plan [facility] Comm [id number] N/A History of Encounters Visit Date Visit Type Provider 11/18/[address] Anjana Stein MD 11/13/[address] Anjana Stein MD 11/06/[address] Anjana Stein MD 10/23/[address] Anjana Stein MD 10/15/2015 Laboratory Piedad VELASQUEZ 10/09/[address] Anjana Stein MD 09/16/[address] Anjana Steni MD 08/25/2015 Office visit Giselle Gilman SUPERVISOR BROODER FARM 07/28/[address] Anjana Stein MD 06/30/2015 Office visit Giselle Gilman SUPERVISOR BROODER FARM 06/30/2015 Voided Roxanna Norman MD 06/04/2015 Office visit ROXANNA NORMAN MD 05/06/2015 Office visit ROXANNA NORMAN MD 04/21/2015 Office visit ROXANNA NORMAN MD 04/07/[address] SARAH NUÑEZ MD
--- OUTSIDE RECORDS SUMMARY | 2019-02-06 10:14 | XMS REPORT ---
Author Author Anjana Stein [facility] Address [address] [place], [place] [address] Care Team Providers Care Desizing Machine Operator Head End Name Role Phone Anjana Stein PCP Unavailable [...] by topical route 2 times per day ferrous sulfate 325 mg (65 mg iron) oral tablet 10/09/2015 take 1 tablet by oral route 2 times a day Name Start Date Expiration Date SIG [...] AM COMPLETE CBC W/AUTO DIFF WBC Returned 04/07/2015 12:00 AM CYTOPATH C/V THIN [...] #EOS 0.02 #BASO 0.01 History Of Immunizations Not available. History of Past Illness Name Date of Onset Comments *No known medical problems Care, Other Normal Apr 07 2015 9:18AM Antepartum tobacco use same as before Apr 07 2015 9:18AM , Other Normal Apr 21 2015 11:24AM Normal , second trimester Jun 04 2015 2:47PM Normal Jun 04 2015 3:10PM , Other Normal Sep 16 2015 2:04PM Payers Insurance Name Company Name Plan Name Plan Number Policy Number Policy Group Number Start Date [facility] - [facility] - [facility] Comm [id number] N/A History of Encounters Visit Date Visit Type Provider 10/09/[address] Anjana Stein MD 09/16/[address] Anjana Stein MD 08/25/2015 Office visit Giselle Gilman POLITICAL ORGANIZER 07/28/[address] Anjana Stein MD 06/30/2015 Office visit Giselle Gilman POLITICAL ORGANIZER 06/30/2015 Voided Roxanna Norman MD 06/04/2015 Office visit ROXANNA NORMAN MD 05/06/2015 Office visit ROXANNA NORMAN MD 04/21/2015 Office visit ROXANNA NORMAN MD 04/07/[address] SARAH NUÑEZ MD
--- OUTSIDE RECORDS SUMMARY | 2019-02-06 10:15 | XMS REPORT ---
Author Author Anjana Stein [facility] Address [address] [place], [place] [phone] Care Team Providers Care Photographic Process Worker Name Role Phone Anjana Stein PCP [...] Policy Number Policy Group Number Start Date [facility] - [facility] Comm [id number] N/A History of Encounters Visit Date Visit Type Provider 07/28/[address] Anjana Stein MD 06/30/2015 Office visit Giselle Gilman TRUSS DRIVER HELPER 06/30/2015 Voided Roxanna Norman MD 06/04/2015 Office visit ROXANNA NORMAN MD 05/06/2015 Office visit ROXANNA NORMAN MD 04/21/2015 Office visit ROXANNA NORMAN MD 04/07/[address] SARAH NUÑEZ MD
--- OUTSIDE RECORDS SUMMARY | 2019-02-06 10:15 | XMS REPORT ---
Author Author Piedad Bautista [facility] Address [address] [place], [place] [address] Care Team Providers Care Field Service Coordinator Name Role Phone Piedad Bautista PCP Allergies and Adverse Reactions Name Reaction Notes Tylenol Arthritis Pain rash (pt can take plain Tylenol) Plan of Treatment Planned Activity Comments Planned Date Planned Time Plan/Goal Positive parvovirus 11/03/2015 10:30 AM Medications Name Start Date Expiration Date SIG Comments Metrogel Vaginal 0.75 % vaginal gel 04/21/2015 04/26/2015 insert 1 applicatorful (37.5 mg) by vaginal route once daily at bedtime for 5 days amoxicillin 500 mg oral capsule 11/13/2015 11/23/2015 take 1 capsule (500 mg) by oral route 3 times per day for 10 days Augmentin 875-125 mg oral tablet 02/02/2016 02/09/2016 take 1 tablet by oral route every 12 hours for 7 days [place] 7.5-325 mg oral tablet 02/05/2016 02/12/2016 take 1 tablet by oral route every 6 hours as needed for 7 days Discontinued Name Start Date Discontinued Date SIG Comments Vitamin oral tablet 03/15/2016 take 1 tablet by oral route once daily loratadine 10 mg oral tablet 05/21/2015 03/15/2016 take 1 tablet (10 mg) by oral route once daily Concept OB 85-1 mg oral capsule 07/02/2015 02/02/2016 take 1 capsule by oral route once daily ferrous sulfate 325 mg (65 mg iron) oral tablet 10/09/2015 03/15/2016 take 1 tablet by oral route 2 times a day hydrocortisone valerate 0.2 % topical cream 11/13/2015 02/02/2016 apply to the affected area(s) by topical route 2 times per day Vistaril 25 mg oral capsule 11/13/2015 02/02/2016 take 1 capsule (25 mg) by oral route up to3 times per day as needed for itching Problem List Not available. Vital Signs Date Time BP-Sys(mm[Hg] BP-Sue(mm[Hg]) HR(bpm) RR(rpm) Temp WT HT HC BMI BSA BMI Percentile O2 Sat(%) 03/15/2016 8:42:00 AM 102 mmHg 58 mmHg 74 bpm 14 rpm 95.5 F 117.75 lbs 62 in 21.54 kg/m2 1.53 m2 100 % 02/02/2016 2:17:00 PM 118 mmHg 78 mmHg 85 bpm 14 rpm 98 F 122.5 lbs 62 in 22.4053 kg/m 1.5591 m 98 % 04/07/2015 9:16:00 AM 117 mmHg 71 mmHg [...] AM TDAP VACCINE 7 YRS/> IM Reviewed 11/06/2015 12:00 AM IMMUNIZATION ADMIN Reviewed 04/07/2015 12:00 AM CYTOPATH C/V THIN [...] 1.44 #MONO 0.58 #EOS 0.02 #BASO 0.01 11/26/2015 9:56 PM AMNISURE ROM NEGATIVE 12/01/2015 8:13 AM AMNISURE ROM POSITIVE History Of Immunizations Name Date Admin Mfg Name Mfg Code Trade Name Lot# Route Inj Vis Given Vis Pub CVX Tdap 11/06/2015 SuperTruper SKB BOOSTRIX [id number] Intramuscular Left Deltoid 11/06/2015 [...] for Tdap vaccine Nov 06 2015 4:30PM Dental abscess Feb 02 2016 2:19PM Dental abscess Feb 05 2016 11:42AM Nipple problem Mar 15 2016 8:44AM Payers Insurance Name Company Name Plan Name Plan Number Policy Number Policy Group Number Start Date [facility] - [facility] - Community Plan [facility] Comm [id number] N/A [facility] Plan [facility] Comm Plan of [id number] N/A History of Encounters Visit Date Visit Type Provider 03/15/2016 Office visit Piedad VELASQUEZ 02/02/2016 Office visit Piedad VELASQUEZ 12/01/[address] Anjana Stein MD 11/25/[address] Anjana Stein MD 11/18/[address] Anjana Stein MD 11/13/[address] Anjana Stein MD 11/06/[address] Anjana Stein MD 10/23/[address] Anjana Stein MD 10/15/2015 Laboratory Piedad VELASQUEZ 10/09/[address] Anjana Stein MD 09/16/[address] Anjana Stein MD 08/25/2015 Office visit Giselle Gilman VP CUSTOMER SERVICE 07/28/[address] Anjana Stein MD 06/30/2015 Office visit Giselle Gilman VP CUSTOMER SERVICE 06/30/2015 Voided Roxanna Norman MD 06/04/2015 Office visit ROXANNA NORMAN MD 05/06/2015 Office visit ROXANNA NORMAN MD 04/21/2015 Office visit ROXANNA NORMAN MD 04/07/[address] SARAH NUÑEZ MD
--- OUTSIDE RECORDS SUMMARY | 2019-02-06 10:15 | XMS REPORT ---
Author Author Anjana Stein Organization [facility] Address [address] [place], [place] [address] Care Team Providers Care Senior Software Quality Analyst Name Role Phone Anjana Stein PCP Unavailable Allergies and Adverse Reactions Name Reaction Notes Tylenol Arthritis Pain rash (pt can take plain Tylenol) Plan of Treatment Planned Activity Comments Planned Date Planned Time Plan/Goal CULTURE SCREEN ONLY 11/06/2015 12:00 AM Positive parvovirus 11/03/2015 10:30 [...] in third trimester Nov 06 2015 4:24PM Payers Insurance Name Company Name Plan Name Plan Number Policy Number Policy Group Number Start Date [facility] - [facility] Comm [id number] N/A History of Encounters Visit Date Visit Type Provider 11/06/[address] Anjana Stein MD 10/23/[address] Anjana Stein MD 10/15/2015 Laboratory Piedad VELASQUEZ 10/09/[address] Anjana Stein MD 09/16/[address] Anjana Stein MD 08/25/2015 Office visit Giselle Gilman FLUID JET CUTTER OPERATOR 07/28/[address] Anjana Stein MD 06/30/2015 Office visit Giselle Gilman FLUID JET CUTTER OPERATOR 06/30/2015 Voided Roxanna Norman MD 06/04/2015 Office visit ROXANNA NORMAN MD 05/06/2015 Office visit ROXANNA NORMAN MD 04/21/2015 Office visit ROXANNA NORMAN MD 04/07/[address] SARAH NUÑEZ MD
--- OUTSIDE RECORDS SUMMARY | 2019-02-06 10:15 | XMS REPORT ---
Author Author Anjana Stein Organization [facility] Address [address] [place], [place] [address] Care Team Providers Care Community Development Worker Name Role Phone Anjana Stein PCP Unavailable Allergies and Adverse Reactions Name Reaction Notes Tylenol Arthritis Pain rash (pt can take plain Tylenol) Plan of Treatment Planned Activity Comments Planned Date Planned Time Plan/Goal Positive parvovirus 11/03/2015 10:30 AM Medications Active [...] Policy Number Policy Group Number Start Date [facility] Plan [facility] Comm [id number] N/A History of Encounters Visit Date Visit Type Provider 10/23/[address] Anjana Steni MD 10/15/2015 Laboratory Piedad VELASQUEZ 10/09/[address] Anjana Stein MD 09/16/[address] Anjana Stein MD 08/25/2015 Office visit Giselle Gilman OCCUPATIONAL ANALYST 07/28/[address] Anjana Stein MD 06/30/2015 Office visit Giselle Gilman OCCUPATIONAL ANALYST 06/30/2015 Voided Roxanna Norman MD 06/04/2015 Office visit ROXANNA NORMAN MD 05/06/2015 Office visit ROXANNA NORMAN MD 04/21/2015 Office visit ROXANNA NORMAN MD 04/07/[address] SARAH NUÑEZ MD
--- OUTSIDE RECORDS SUMMARY | 2019-02-06 10:16 | XMS REPORT ---
Author Author Piedad Bautista [facility] Address [address] [place], [place] [phone] Care Team Providers Care Aerospace Engineer Officer Armament Name Role Phone Piedad Bautista PCP Allergies [...] route every 12 hours for 7 days [place] 7.5-325 mg oral tablet 02/05/2016 02/12/2016 take [...] Vis Given Vis Pub CVX Tdap 11/06/2015 [facility] SKB BOOSTRIX [id number] Intramuscular Left Deltoid 11/06/2015 [...] Policy Number Policy Group Number Start Date [facility] - RHC - Community Plan [facility] Comm [id number] N/A [facility] Plan [facility] Comm Plan of [id number] N/A History of Encounters Visit Date Visit [...] Stein MD 08/25/2015 Office visit Giselle Gilman LIQUIFIED NATURAL GAS SPECIALIST 07/28/[address] Anjana Stein MD 06/30/2015 Office visit Giselle Gilman LIQUIFIED NATURAL GAS SPECIALIST 06/30/2015 Voided Roxanna Norman MD 06/04/2015 Office visit ROXANNA NORMAN MD 05/06/2015 Office visit ROXANNA NORMAN MD 04/21/2015 Office visit ROXANNA NORMAN MD 04/07/[address] SARAH NUÑEZ MD
--- OUTSIDE RECORDS SUMMARY | 2019-02-06 10:16 | XMS REPORT ---
Author Author Roxanna Alvarez [facility] Address [address] [place], [place] [id number] Care Team Providers Care Software Applications Engineer Name Role Phone Roxanna Alvarez PCP Unavailable Allergies and Adverse Reactions Name Reaction Notes Tylenol Arthritis Pain rash (pt can take plain Tylenol) Plan of Treatment Not available. Medications Active Name Start Date Estimated Completion Date SIG Comments Vitamin oral tablet take 1 tablet by oral route once daily loratadine 10 mg oral tablet 05/21/2015 take 1 tablet (10 mg) by oral route once daily Name Start [...] of Procedures Date Ordered Description Order Status 04/07/2015 12:00 AM CYTOPATH C/V THIN LAYER [...] , Other Normal Apr 21 2015 11:24AM Payers Insurance Name Company Name Plan Name Plan Number Policy Number Policy Group Number Start Date [facility] - C - [facility] Comm [id number] N/A History of Encounters Visit Date Visit Type Provider 06/04/2015 Office visit Roxanna Alvarez MD 05/06/2015 Office visit ROXANNA ALVAREZ MD 04/21/2015 Office visit ROXANNA ALVAREZ MD 04/07/[address] SARAH NUÑEZ MD
--- OUTSIDE RECORDS SUMMARY | 2019-02-06 10:16 | XMS REPORT ---
Author Author Roxanna Norman [facility] Address [address] [place], [place] [phone] Care Team Providers Care Dry Pan Charger Name Role Phone Roxanna Norman PCP Unavailable Allergies and Adverse Reactions Name Reaction Notes Tylenol Arthritis Pain rash (pt can take plain Tylenol) Plan of Treatment Planned Activity Comments Planned Date Planned Time Plan/Goal URINALYSIS AUTO W/SCOPE 04/21/2015 12:00 AM DRUG SCREEN CLASS LIST A 04/21/2015 12:00 AM Medications Active Name Start Date Estimated Completion Date SIG Comments Vitamin oral tablet take 1 tablet by oral route once daily Metrogel Vaginal 0.75 % vaginal gel 04/21/2015 [...] Returned 04/07/2015 12:00 AM OBSTETRIC PANEL Returned Results Summary Data and Description Results 04/07/2015 10:15 AM WBC 5.4 RBC 4.16 HGB 13.0 g/dLHCT 37.10 %MCV 89.0 fLMCH 31.30 pgMCHC 35.0 g/dLRDW CV 12.20 %MPV 10.30 fLPLT 249 %NEUT 53.10 %%LYMP 36.0 %%MONO 9.60 %%EOS 1.10 %%BASO 0.20 %#NEUT 2.87 #LYMP 1.95 #MONO 0.52 #EOS 0.06 #BASO 0.01 HIV AG/AB COMBO 0.08 RPR Non Reactive HBsAg Screen Negative Rubella Antibodies, IgG 3.43 Index History Of Immunizations Not available. History of Past Illness Name Date of Onset Comments *No known medical problems Care, Other Normal Apr 07 2015 9:18AM Antepartum tobacco use same as before Apr 07 2015 9:18AM , Other Normal Apr 21 2015 11:24AM Payers Insurance Name Company Name Plan Name Plan Number Policy Number Policy Group Number Start Date [facility] - [facility] - [facility] Comm [id number] N/A History of Encounters Visit Date Visit Type Provider 04/21/2015 Office visit Roxanna Norman MD 04/07/[address] SARAH NUÑEZ MD
--- OUTSIDE RECORDS SUMMARY | 2019-02-06 10:16 | XMS REPORT ---
Author Author Giselle Gilman [facility] Address [address] [place], [place] [phone] Care Team Providers Care Licensed Practical Nurse Instructor Name Role Phone Giselle Gilman PCP Unavailable Allergies and Adverse Reactions Name Reaction Notes Tylenol Arthritis Pain rash (pt can take plain Tylenol) Plan of Treatment Planned Activity Comments Planned Date Planned Time Plan/Goal DRUG SCREEN CLASS LIST A 06/04/2015 12:00 AM OB US >/=14 WKS SNGL FETUS 07/16/2015 12:00 AM Medications Active Name Start Date [...] Policy Number Policy Group Number Start Date [facility] - [facility] - [facility] Comm [id number] N/A History of Encounters Visit Date Visit Type Provider 06/30/2015 Office visit Giselle Gilman APRN 06/30/2015 Office visit Roxanna Norman MD 06/04/2015 Office visit ROXANNA NORMAN MD 05/06/2015 Office visit ROXANNA NORMAN MD 04/21/2015 Office visit ROXANNA NORMAN MD 04/07/[address] SARAH NUÑEZ MD
--- OUTSIDE RECORDS SUMMARY | 2019-02-06 10:16 | XMS REPORT ---
Author Author Anjana Stein [facility] Address [address] [place], [place] [phone] Care Team Providers Care Header Operator Name Role Phone Anjana Stein PCP Unavailable [...] Policy Group Number Start Date [facility] - [facility] - [facility] Comm [id number] N/A History of Encounters Visit Date Visit Type Provider 09/16/[address] Anjana Stein MD 08/25/2015 Office visit Giselle Gilman SEMICONDUCTOR DEVELOPMENT TECHNICIAN 07/28/[address] Anjana Stein MD 06/30/2015 Office visit Giselle Gilman SEMICONDUCTOR DEVELOPMENT TECHNICIAN 06/30/2015 Voided Roxanna Norman MD 06/04/2015 Office visit ROXANNA NORMAN MD 05/06/2015 Office visit ROXANNA NORMAN MD 04/21/2015 Office visit ROXANNA NORMAN MD 04/07/[address] SARAH NUÑEZ MD
--- OUTSIDE RECORDS SUMMARY | 2019-02-06 10:17 | XMS REPORT ---
Author Author Anjana Stein [facility] Address [address] [place], [place] [phone] Care Team Providers Care Psych Arnp Name Role Phone Anjana Stein PCP Unavailable [...] Policy Group Number Start Date [facility] - [facility] - [facility] Plan [facility] Comm [id number] N/A History of Encounters Visit Date Visit Type Provider 10/09/[address] Anjana Stein MD 09/16/[address] Anjana Stein MD 08/25/2015 Office visit Giselle Gilman PROP ATTENDANT 07/28/[address] Anjana Stein MD 06/30/2015 Office visit Giselle Gilman PROP ATTENDANT 06/30/2015 Voided Roxanna Norman MD 06/04/2015 Office visit ROXANNA NORMAN MD 05/06/2015 Office visit ROXANNA NORMAN MD 04/21/2015 Office visit ROXANNA NORMAN MD 04/07/[address] SARAH NUÑEZ MD
--- OUTSIDE RECORDS SUMMARY | 2019-02-06 10:17 | XMS REPORT ---
Author Author Roxanna Norman [facility] Address [address] [place], [place] [phone] Care Team Providers Care Cartographic Aide Name Role Phone Roxanna Norman PCP Unavailable Allergies and Adverse Reactions Name Reaction Notes Tylenol Arthritis Pain rash (pt can take plain Tylenol) Plan of Treatment Planned Activity Comments Planned Date Planned Time Plan/Goal DRUG SCREEN CLASS LIST A 04/21/2015 12:00 [...] 13.0 g/dLHCT 37.10 %MCV 89.0 fLMCH 31.30 [facility] 35.[facility] g/dLRDW CV 12.20 %MPV 10.30 fLPLT [...] Start Date [facility] - [facility] - [facility] Comm [id number] N/A History of Encounters Visit Date Visit Type Provider 04/21/2015 Office visit Roxanna Norman MD 04/07/[address] SARAH NUÑEZ MD
--- OUTSIDE RECORDS SUMMARY | 2019-02-06 10:17 | XMS REPORT ---
Author Author Giselle Gilman [facility] Address [address] [place], [place] [address] Care Team Providers Care Wool Classer Name Role Phone Giselle Gilman PCP Unavailable [...] Policy Number Policy Group Number Start Date [facility] - [facility] - [facility] Plan [facility] Comm [id number] N/A History of Encounters Visit Date Visit Type Provider 06/30/2015 Office visit Giselle Gilman APRN 06/30/2015 Office visit Roxanna Norman MD 06/04/2015 Office visit ROXANNA NORMAN MD 05/06/2015 Office visit ROXANNA NORMAN MD 04/21/2015 Office visit ROXANNA NORMAN MD 04/07/[address] SARAH NUÑEZ MD
--- OUTSIDE RECORDS SUMMARY | 2019-02-06 10:17 | XMS REPORT ---
Author Author Roxanna Alvarez [facility] Address [address] [place], [place] [address] Care Team Providers Care Biochemistry Technician Name Role Phone Roxanna Alvarez PCP Unavailable [...] Policy Number Policy Group Number Start Date [facility] - [facility] - [facility] Comm [id number] N/A History of Encounters Visit Date Visit Type Provider 06/04/2015 Office visit Roxanna Alvarez MD 05/06/2015 Office visit ROXANNA ALVAREZ MD 04/21/2015 Office visit ROXANNA ALVAREZ MD 04/07/[address] SARAH NUÑEZ MD
--- OUTSIDE RECORDS SUMMARY | 2019-02-06 10:17 | XMS REPORT ---
Author Author Anjana Stein [facility] Address [address] [place], [place] [phone] Care Team Providers Care Saddle And Harness Maker Name Role Phone Anjana Stein PCP Unavailable [...] times per day as needed for itching Name Start Date Expiration Date SIG Comments Metrogel Vaginal 0.75 % vaginal gel 04/21/2015 04/26/2015 insert 1 applicatorful (37.5 mg) by vaginal route once daily at bedtime for 5 days amoxicillin 500 mg oral capsule 11/13/2015 11/23/2015 take 1 capsule (500 mg) by oral route 3 times per day for 10 days Problem List Not available. Vital Signs [...] Vis Given Vis Pub CVX Tdap 11/06/2015 Glax[employer] SKB BOOSTRIX [id number] Intramuscular Left Deltoid 11/06/2015 [...] Policy Number Policy Group Number Start Date [facility] - [facility] - Community Plan [facility] Comm [id number] N/A History of Encounters Visit Date Visit Type Provider 11/25/[address] Anjana Stein MD 11/18/[address] Anjana Stein MD 11/13/[address] Anjana Stein MD 11/06/[address] Anjana Stein MD 10/23/[address] Anjana Stein MD 10/15/2015 Laboratory Piedad VELASQUEZ 10/09/[address] Anjana Stein MD 09/16/[address] Anjana Stein MD 08/25/2015 Office visit Giselle Gilman BILL CUTTER 07/28/[address] Anjana Stein MD 06/30/2015 Office visit Giselle Gilman BILL CUTTER 06/30/2015 Voided Roxanna Norman MD 06/04/2015 Office visit ROXANNA NORMAN MD 05/06/2015 Office visit ROXANNA NORMAN MD 04/21/2015 Office visit ROXANNA NORMAN MD 04/07/[address] SARAH NUÑEZ MD
--- OUTSIDE RECORDS SUMMARY | 2019-02-06 10:18 | XMS REPORT ---
Author Author Anjana Stein [facility] Address [address] [place], [place] [phone] Care Team Providers Care Safety Clothing And Equipment Developer Name Role Phone Anjana Stein PCP Unavailable [...] Vis Given Vis Pub CVX Tdap 11/06/2015 [employer] SKB BOOSTRIX [id number] Intramuscular Left Deltoid 11/06/2015 [...] Policy Number Policy Group Number Start Date [facility] - [facility] - Community Plan [facility] Comm [id number] N/A History of Encounters Visit Date Visit [...] Stein MD 08/25/2015 Office visit Giselle Gilman BATTERY TECHNICIAN 07/28/[address] Anjana Stein MD 06/30/2015 Office visit Giselle Gilman BATTERY TECHNICIAN 06/30/2015 Voided Roxanna Norman MD 06/04/2015 Office visit ROXANNA NORMAN MD 05/06/2015 Office visit ROXANNA NORMAN MD 04/21/2015 Office visit ROXANNA NORMAN MD 04/07/[address] SARAH NUÑEZ MD
--- OUTSIDE RECORDS SUMMARY | 2019-02-06 10:18 | XMS REPORT ---
Author Author Anjana Stein Organization [facility] Address [address] [place], [place] [address] Care Team Providers Care Product Blending Supervisor Name Role Phone Anjana Stein PCP Unavailable [...] Number Policy Group Number Start Date [facility] - [facility] - [facility] Plan [facility] Comm [id number] N/A History of Encounters Visit Date Visit Type Provider 11/06/[address] Anjana Stein MD 10/23/[address] Anjana Stein MD 10/15/2015 Laboratory Piedad VELASQUEZ 10/09/[address] Anjana Stein MD 09/16/[address] Anjana Stein MD 08/25/2015 Office visit Giselle Gilman BODY ROLLING MACHINE TENDER 07/28/[address] Anjana Stein MD 06/30/2015 Office visit Giselle Gilman BODY ROLLING MACHINE TENDER 06/30/2015 Voided Roxanna Norman MD 06/04/2015 Office visit ROXANNA NORMAN MD 05/06/2015 Office visit ROXANNA NORMAN MD 04/21/2015 Office visit ROXANNA NORMAN MD 04/07/[address] SARAH NUÑEZ MD
--- OUTSIDE RECORDS SUMMARY | 2019-02-06 10:18 | XMS REPORT ---
Author Author Roxanna Alvarez [facility] Address [address] [place], [place] [address] Care Team Providers Care Counseling Case Manager Name Role Phone Roxanna Alvarez PCP Unavailable Allergies and Adverse Reactions Name Reaction Notes Tylenol Arthritis Pain rash (pt can take plain Tylenol) Plan of Treatment Planned Activity Comments Planned Date Planned Time Plan/Goal DRUG SCREEN CLASS LIST A 06/04/2015 12:00 AM Medications Active Name Start Date [...] , second trimester Jun 04 2015 2:47PM Payers Insurance Name Company Name Plan Name Plan Number Policy Number Policy Group Number Start Date [facility] - [facility] - Community Plan [facility] Comm [id number] N/A History of Encounters Visit Date Visit Type Provider 06/04/2015 Office visit Roxanna Alvarez MD 05/06/2015 Office visit ROXANNA ALVAREZ MD 04/21/2015 Office visit ROXANNA ALVAREZ MD 04/07/[address] SARAH NUÑEZ MD
--- OUTSIDE RECORDS SUMMARY | 2019-02-06 10:18 | XMS REPORT ---
Author Author Roxanna Alvarez [facility] Address [address] [place], [place] [address] Care Team Providers Care Weeder Name Role Phone Roxanna Alvarez PCP Unavailable Allergies and Adverse Reactions Name Reaction Notes Tylenol Arthritis Pain rash (pt can take plain Tylenol) Plan of Treatment Not available. Medications Active Name Start Date Estimated Completion Date SIG Comments Vitamin oral tablet take 1 tablet by oral route once daily Name Start [...] Policy Number Policy Group Number Start Date [facility] - C - Community Plan [facility] Comm [id number] N/A History of Encounters Visit Date Visit Type Provider 05/06/2015 Office visit Roxanna Alvarez MD 04/21/2015 Office visit ROXANNA ALVAREZ MD 04/07/[address] SARAH NUÑEZ MD
--- OUTSIDE RECORDS SUMMARY | 2019-02-06 10:19 | XMS REPORT ---
Author Author Anjana Stein [facility] Address [address] [place], [place] [address] Care Team Providers Care Scrap Collector Name Role Phone Anjana Stein PCP Unavailable [...] Vis Given Vis Pub CVX Tdap 11/06/2015 [id number] SKB BOOSTRIX [id number] Intramuscular Left Deltoid 11/06/2015 [...] Policy Number Policy Group Number Start Date [facility] - [facility] Plan [facility] Comm [id number] N/A History of Encounters Visit Date Visit Type Provider 11/13/[address] Anjana Stein MD 11/06/[address] Anjana Stein MD 10/23/[address] Anjana Stein MD 10/15/2015 Laboratory Piedad VELASQUEZ 10/09/[address] Anjana Stein MD 09/16/[address] Anjana Stein MD 08/25/2015 Office visit Giselle Gilman RESPIRATORY PRACTITIONER 07/28/[address] Anjana Stein MD 06/30/2015 Office visit Giselle Gilman RESPIRATORY PRACTITIONER 06/30/2015 Voided Roxanna Norman MD 06/04/2015 Office visit ROXANNA NORMAN MD 05/06/2015 Office visit ROXANNA NORMAN MD 04/21/2015 Office visit ROXANNA NORMAN MD 04/07/[address] SARAH NUÑEZ MD
--- OUTSIDE RECORDS SUMMARY | 2019-02-06 10:19 | XMS REPORT ---
Author Author Piedad Bautista [facility] Address [address] [place], [place] [address] Care Team Providers Care Setter Out Name Role Phone Piedad Bautista PCP Allergies [...] (10 mg) by oral route once daily ferrous sulfate 325 mg (65 mg iron) oral tablet 10/09/2015 take 1 tablet by oral route 2 times a day Augmentin 875-125 mg oral tablet 02/02/2016 02/09/2016 take 1 tablet by oral route every 12 hours for 7 days [place] 7.5-325 mg oral tablet 02/05/2016 02/12/2016 take 1 tablet by oral route every 6 hours as needed for 7 days Name Start Date Expiration Date SIG Comments Metrogel Vaginal 0.75 % vaginal gel 04/21/2015 04/26/2015 insert 1 applicatorful (37.5 mg) by vaginal route once daily at bedtime for 5 days amoxicillin 500 mg oral capsule 11/13/2015 11/23/2015 take 1 capsule (500 mg) by oral route 3 times per day for 10 days Discontinued Name Start Date Discontinued Date SIG Comments Concept OB 85-1 mg oral capsule 07/02/2015 02/02/2016 take 1 capsule by oral route once daily hydrocortisone valerate 0.2 % topical cream 11/13/2015 [...] HC BMI BSA BMI Percentile O2 Sat(%) 02/02/2016 2:17:00 PM 118 mmHg 78 mmHg 85 bpm 14 rpm 98 F 122.5 lbs 62 in 22.41 kg/m2 1.56 m2 98 % 04/07/2015 9:16:00 AM 117 mmHg 71 mmHg 84 bpm 98.4 F 118.375 lbs 62 in 21.6508 kg/m 1.5326 m Social History Name Description Comments Tobacco Current [...] Vis Given Vis Pub CVX Tdap 11/06/2015 [employer] SKB BOOSTRIX [id number] Intramuscular Left Deltoid 11/06/2015 [...] 2:19PM Dental abscess Feb 05 2016 11:42AM Payers Insurance Name Company Name Plan Name Plan Number Policy Number Policy Group Number Start Date [facility] - [facility]HC - Community Plan [facility] Comm [id number] N/A [facility] Comm Plan of [id number] N/A History of Encounters Visit Date Visit Type Provider 02/02/2016 Office visit Piedad VELASQUEZ 12/01/2015 Hospital [...] Stein MD 08/25/2015 Office visit Giselle Gilman CAR CARDER 07/28/[address] Anjana Stein MD 06/30/2015 Office visit Giselle Gilman CAR CARDER 06/30/2015 Voided Roxanna Norman MD 06/04/2015 Office visit ROXANNA NORMAN MD 05/06/2015 Office visit ROXANNA NORMAN MD 04/21/2015 Office visit ROXANNA NORMAN MD 04/07/[address] SARAH NUÑEZ MD
--- OUTSIDE RECORDS SUMMARY | 2019-02-06 10:19 | XMS REPORT ---
Author Author Anjana Stein [facility] Address [address] [place], [place] [address] Care Team Providers Care Refractory Manager Name Role Phone Anjana Stein PCP [...] Number Policy Group Number Start Date [facility] - [facility] - [facility] Plan of [facility] Comm [id number] N/A History of Encounters Visit Date Visit Type Provider 10/23/[address] Anjana Stein MD 10/15/2015 Laboratory Piedad VELASQUEZ 10/09/[address] Anjana Stein MD 09/16/[address] Anjana Stein MD 08/25/2015 Office visit Giselle Gilman REGULATORY ADMINISTRATOR 07/28/[address] Anjana Stein MD 06/30/2015 Office visit Giselle Gilman REGULATORY ADMINISTRATOR 06/30/2015 Voided Roxanna Norman MD 06/04/2015 Office visit ROXANNA NORMAN MD 05/06/2015 Office visit ROXANNA NORMAN MD 04/21/2015 Office visit ROXANNA NORMAN MD 04/07/[address] SARAH NUÑEZ MD
--- OUTSIDE RECORDS SUMMARY | 2019-02-06 10:20 | XMS REPORT ---
Author Author Anjana Stein Organization [facility] Address [address] [place], [place] [address] Care Team Providers Care Commercial Intern Name Role Phone Anjana Stein PCP Unavailable Allergies and Adverse Reactions Name Reaction Notes Tylenol Arthritis Pain rash (pt can take plain Tylenol) Plan of Treatment Planned Activity Comments Planned Date Planned Time Plan/Goal CULTURE SCREEN ONLY 11/06/2015 12:00 AM IMMUNIZATION ADMIN 11/06/2015 12:00 AM Positive parvovirus [...] W/AUTO DIFF WBC Returned 11/06/2015 12:00 AM TDAP VACCINE 7 [...] Vis Given Vis Pub CVX Tdap 11/06/2015 [employer] SKB BOOSTRIX [id number] Intramuscular Left Deltoid 11/06/2015 [...] Policy Number Policy Group Number Start Date [place] - [facility] - [facility] Comm [id number] N/A History of Encounters Visit Date Visit Type Provider 11/06/[address] Anjana Stein MD 10/23/[address] Anjana Stein MD 10/15/2015 Laboratory Piedad VELASQUEZ 10/09/[address] Anjana Stein MD 09/16/[address] Anjana Stein MD 08/25/2015 Office visit Giselle Gilman RETAIL EXPERIENCE SPECIALIST 07/28/[address] Anjana Stein MD 06/30/2015 Office visit Giselle Gilman RETAIL EXPERIENCE SPECIALIST 06/30/2015 Voided Roxanna Norman MD 06/04/2015 Office visit ROXANNA NORMAN MD 05/06/2015 Office visit ROXANNA NORMAN MD 04/21/2015 Office visit ROXANNA NORMAN MD 04/07/[address] SARAH NUÑEZ MD
--- OUTSIDE RECORDS SUMMARY | 2019-02-06 10:20 | XMS REPORT ---
Author Author Angela Moncada [facility] Address [address] [place], [place] [address] Care Team Providers Care Ct Tech Name Role Phone Angela Moncada PCP Unavailable Allergies and Adverse Reactions Name Reaction Notes Tylenol Arthritis Pain rash (pt can take plain Tylenol) Plan of Treatment Planned Activity Comments Planned Date Planned Time Plan/Goal CYTOPATH C/V THIN LAYER 04/07/2015 12:00 AM N.GONORRHOEAE DNA AMP PROB 04/07/2015 12:00 AM CHLAMYDIA CULTURE 04/07/2015 12:00 AM HIV-1ANTIBODY 04/07/2015 12:00 AM URINALYSIS AUTO W/SCOPE 04/07/2015 12:00 AM OBSTETRIC PANEL 04/07/2015 12:00 AM Medications Active Name Start Date Estimated Completion Date SIG Comments Vitamin oral tablet take 1 tablet by oral route once daily Problem List Not available. Vital Signs Date Time BP-Sys(mm[Hg] BP-Sue(mm[Hg]) HR(bpm) RR(rpm) Temp WT HT HC BMI BSA BMI Percentile O2 Sat(%) 04/07/2015 9:16:00 AM 117 mmHg 71 mmHg 84 bpm 98.4 F 118.375 lbs 62 in 21.65 kg/m2 1.53 m2 Social History Name Description Comments Tobacco Current every day smoker Alcohol Current some day Denies illicit substance abuse History of Procedures Not available. Results Summary Not available. History Of Immunizations Not available. History of Past Illness Name Date of Onset Comments *No known medical problems Care, Other Normal Apr 07 2015 9:18AM Antepartum tobacco use same as before Apr 07 2015 9:18AM Payers Insurance Name Company Name Plan Name Plan Number Policy Number Policy Group Number Start Date [facility] Comm [id number] N/A History of Encounters Visit Date Visit Type Provider 04/07/[address] Angela Moncada MD
--- OUTSIDE RECORDS SUMMARY | 2019-02-06 10:20 | XMS REPORT ---
Author Author Roxanna Alvarez [facility] Address [address] [place], [place] [id number] Care Team Providers Care Full Time Staff Interpreter Name Role Phone Roxanna Alvarez PCP Unavailable [...] Policy Number Policy Group Number Start Date [facility] - [facility] - [facility] Comm [id number] N/A History of Encounters Visit Date Visit Type Provider 06/04/2015 Office visit Roxanna Alvarez MD 05/06/2015 Office visit ROXANNA ALVAREZ MD 04/21/2015 Office visit ROXANNA ALVAREZ MD 04/07/[address] SARAH NUÑEZ MD
--- OUTSIDE RECORDS SUMMARY | 2019-02-06 10:20 | XMS REPORT ---
Author Author Angela Moncada [facility] Address [address] [place], [place] [address] Care Team Providers Care Mattress Filling Machine Tender Name Role Phone Angela Moncada PCP Unavailable [...] Policy Number Policy Group Number Start Date [facility] - [facility] Comm [id number] N/A History of Encounters Visit Date Visit Type Provider 04/07/[address] Angela Moncada MD
--- OUTSIDE RECORDS SUMMARY | 2019-02-06 10:20 | XMS REPORT ---
Author Author Giselle Gilman [facility] Address [address] [place], [place] [phone] Care Team Providers Care Medical Bill Processor Name Role Phone Giselle Gilman PCP Unavailable [...] [facility] - [facility] - [facility] Comm [id number] N/A History of Encounters Visit Date Visit Type Provider 08/25/2015 Office visit Giselle Gilman APRN 07/28/[address] Anjana Stein MD 06/30/2015 Office visit Giselle Gilman APRN 06/30/2015 Voided Roxanna Norman MD 06/04/2015 Office visit ROXANNA NORMAN MD 05/06/2015 Office visit ROXANNA NORMAN MD 04/21/2015 Office visit ROXANNA NORMAN MD 04/07/[address] SARAH NUÑEZ MD
--- OUTSIDE RECORDS SUMMARY | 2019-02-06 10:20 | XMS REPORT ---
Author Author Anjana Stein [facility] Address [address] [place], [place] [phone] Care Team Providers Care Mining Engineer Name Role Phone Anjana Stein PCP Unavailable [...] Vis Given Vis Pub CVX Tdap 11/06/2015 [employer] SKB BOOSTRIX [id number] Intramuscular Left Deltoid [...] Policy Number Policy Group Number Start Date [facility] - Community Plan [facility] Comm [id number] N/A History of Encounters Visit Date Visit [...] Stein MD 08/25/2015 Office visit Giselle Gilman RECEIVING DISTRIBUTION STATION OPERATOR 07/28/[address] Anjana Stein MD 06/30/2015 Office visit Giselle Gilman RECEIVING DISTRIBUTION STATION OPERATOR 06/30/2015 Voided Roxanna Norman MD 06/04/2015 Office visit ROXANNA NORMAN MD 05/06/2015 Office visit ROXANNA NORMAN MD 04/21/2015 Office visit ROXANNA ONRMAN MD 04/07/[address] SARAH NUÑEZ MD
--- OUTSIDE RECORDS SUMMARY | 2019-02-06 10:21 | XMS REPORT ---
Author Author Anjana Stein [facility] Address [address] [place], [place] [id number] Care Team Providers Care Manufacturing Software Engineer Name Role Phone Anjana Stein PCP [...] Vis Given Vis Pub CVX Tdap 11/06/2015 [employer] SKB BOOSTRIX [id number] Intramuscular Left Deltoid 11/06/2015 [...] Number Policy Group Number Start Date [facility] - [facility] - [facility] Plan [facility] Comm [id number] N/A History of Encounters Visit Date Visit Type Provider 11/18/[address] Anjana Stein MD 11/13/[address] Anjana Stein MD 11/06/[address] Anjana Stein MD 10/23/[address] Anjana Stein MD 10/15/2015 Laboratory Piedad VELASQUEZ 10/09/[address] Anjana Stein MD 09/16/[address] Anjana Stein MD 08/25/2015 Office visit Giselle Gilman HARNESS INSTALLER 07/28/[address] Anjana Stein MD 06/30/2015 Office visit Giselle Gilman HARNESS INSTALLER 06/30/2015 Voided Roxanna Norman MD 06/04/2015 Office visit ROXANNA NORMAN MD 05/06/2015 Office visit ROXANNA NORMAN MD 04/21/2015 Office visit ROXANNA NORMAN MD 04/07/[address] SARAH NUÑEZ MD
--- OUTSIDE RECORDS SUMMARY | 2019-02-06 10:21 | XMS REPORT ---
Author Author Anjana Stein Organization [facility] Address [address] [place], [place] [address] Care Team Providers Care Cadmium Liquor Maker Name Role Phone Anjana Stein PCP Unavailable Allergies and Adverse Reactions Name Reaction Notes Tylenol Arthritis Pain rash (pt can take plain Tylenol) Plan of Treatment Planned Activity Comments Planned Date Planned Time Plan/Goal GLUCOSE TOLERANCE TEST (GTT) 09/16/2015 12:00 AM COMPLETE CBC W/AUTO DIFF WBC 09/16/2015 12:00 AM Medications Active Name Start Date [...] Policy Group Number Start Date [facility] - [facility] - [facility] Comm [id number] N/A History of Encounters Visit Date Visit Type Provider 09/16/[address] Anjana Stein MD 08/25/2015 Office visit Giselle Gilman MECHANICAL SYSTEMS CONTROL ENGINEER 07/28/[address] Anjana Stein MD 06/30/2015 Office visit Giselle Gilman MECHANICAL SYSTEMS CONTROL ENGINEER 06/30/2015 Voided Roxanna Norman MD 06/04/2015 Office visit ROXANNA NORMAN MD 05/06/2015 Office visit ROXANNA NORMAN MD 04/21/2015 Office visit ROXANNA NORMAN MD 04/07/[address] SARAH NUÑEZ MD
--- OUTSIDE RECORDS SUMMARY | 2019-02-06 10:21 | XMS REPORT ---
Author Author Anjana Stein [facility] Address [address] [place], [place] [address] Care Team Providers Care Clinical Project Manager Name Role Phone Anjana Stein PCP [...] Number Policy Group Number Start Date [facility] - [facility] - [facility] Plan of [facility] Comm [id number] N/A History of Encounters Visit Date Visit Type Provider 10/23/[address] Anjana Stein MD 10/15/2015 Laboratory Piedad VELASQUEZ 10/09/[address] Anjana Stein MD 09/16/[address] Anjana Stein MD 08/25/2015 Office visit Giselle Gilman VOICE NETWORK ADMINISTRATOR 07/28/[address] Anjana Stein MD 06/30/2015 Office visit Giselle Gilman VOICE NETWORK ADMINISTRATOR 06/30/2015 Voided Roxanna Norman MD 06/04/2015 Office visit ROXANNA NORMAN MD 05/06/2015 Office visit ROXANNA NORMAN MD 04/21/2015 Office visit ROXANNA NORMAN MD 04/07/[address] SARAH NUÑEZ MD
--- OUTSIDE RECORDS SUMMARY | 2019-02-06 10:21 | XMS REPORT ---
Author Angela Barnett [facility] Address [address] [place], [place] [phone] Care Team Providers Care Pecan Picker Name Role Phone Angela Moncada PCP Unavailable [...] of Onset Comments *No known medical problems Payers Insurance Name Company Name Plan Name Plan Number Policy Number Policy Group Number Start Date [facility] - [facility] - [facility] Comm [id number] N/A History of Encounters Visit Date Visit Type Provider 04/07/[address] Angela Moncada MD
--- OUTSIDE RECORDS SUMMARY | 2019-02-06 10:21 | XMS REPORT ---
Author Author Anjana Stein Organization [facility] Address [address] [place], [place] [address] Care Team Providers Care Brass Cutter Name Role Phone Anjana Stein PCP Unavailable [...] Vis Given Vis Pub CVX Tdap 11/06/2015 [employer] SKB BOOSTRIX [id number] Intramuscular Left Deltoid 11/06/2015 [...] Start Date [facility] - [facility] - [facility] Plan [facility] Comm [id number] N/A History of Encounters Visit Date Visit Type Provider 11/13/[address] Anjana Stein MD 11/06/[address] Anjana Stein MD 10/23/[address] Anjana Stein MD 10/15/2015 Laboratory Piedad VELASQUEZ 10/09/[address] Anjana Stein MD 09/16/[address] Anjana Stein MD 08/25/2015 Office visit Giselle Gilman FILLING HAND 07/28/[address] Anjana Stein MD 06/30/2015 Office visit Giselle Gilman FILLING HAND 06/30/2015 Voided Roxanna Norman MD 06/04/2015 Office visit ROXANNA NORMAN MD 05/06/2015 Office visit ROXANNA NORMAN MD 04/21/2015 Office visit ROXANNA NORMAN MD 04/07/[address] SARAH NUÑEZ MD
--- OUTSIDE RECORDS SUMMARY | 2019-02-06 10:22 | XMS REPORT ---
Author Author Anjana Stein Organization [facility] Address [address] [place], [place] [address] Care Team Providers Care Tattoo Artist Name Role Phone Anjana Stein PCP Unavailable [...] Vis Given Vis Pub CVX Tdap 11/06/2015 [employer] SKB BOOSTRIX [id number] Intramuscular Left Deltoid 11/06/2015 [...] Policy Number Policy Group Number Start Date [facility] - [facility] - [facility] Comm [id number] N/A History of Encounters Visit Date Visit Type Provider 11/06/[address] Anjana Stein MD 10/23/[address] Anjana Stein MD 10/15/2015 Laboratory Piedad VELASQUEZ 10/09/[address] Anjana Stein MD 09/16/[address] Anjana Stein MD 08/25/2015 Office visit Giselle Gilman MOTH PROOFER 07/28/[address] Anjana Stein MD 06/30/2015 Office visit Giselle Gilman MOTH PROOFER 06/30/2015 Voided Roxanna Norman MD 06/04/2015 Office visit ROXANNA NORMAN MD 05/06/2015 Office visit ROXANNA NORMAN MD 04/21/2015 Office visit ROXANNA NORMAN MD 04/07/[address] SARAH NUÑEZ MD
--- OUTSIDE RECORDS SUMMARY | 2019-02-06 10:22 | XMS REPORT ---
Author Author Anjana Stein [facility] Address [address] [place], [place] [address] Care Team Providers Care Synthetic Resin Operator Name Role Phone Anjana Stein PCP [...] 0.01 11/26/2015 9:56 PM AMNISURE ROM NEGATIVE History Of Immunizations Name Date Admin Mfg Name Mfg Code Trade Name Lot# Route Inj Vis Given Vis Pub CVX Tdap 11/06/2015 Omnitrol [employer] SKB BOOSTRIX [id number] Intramuscular Left Deltoid 11/06/2015 [...] Start Date [facility] - [facility] - Community Plan [facility] Comm [id number] N/A History of Encounters Visit Date Visit [...] Stein MD 08/25/2015 Office visit Giselle Gilman GROCERY SHOPPER 07/28/[address] Anjana Stein MD 06/30/2015 Office visit Giselle Gilman GROCERY SHOPPER 06/30/2015 Voided Roxanna Norman MD 06/04/2015 Office visit ROXANNA NORMAN MD 05/06/2015 Office visit ROXANNA NORMAN MD 04/21/2015 Office visit ROXANNA NORMAN MD 04/07/[address] SARAH NUÑEZ MD
--- OUTSIDE RECORDS SUMMARY | 2019-02-06 10:22 | XMS REPORT ---
Author Author Roxanna Alvarez [facility] Address [address] [place], [place] [address] Care Team Providers Care Senior Ios Developer Name Role Phone Roxanna Alvarez PCP Unavailable [...] Policy Number Policy Group Number Start Date [facility] - [facility] - Community Plan of [facility] Comm [id number] N/A History of Encounters Visit Date Visit Type Provider 05/06/2015 Office visit Roxanna Alvarez MD 04/21/2015 Office visit ROXANNA ALVAREZ MD 04/07/[address] SARAH NUÑEZ MD
--- OUTSIDE RECORDS SUMMARY | 2019-02-06 10:22 | XMS REPORT ---
Author Author Roxanna Norman [facility] Address [address] [place], [place] [address] Care Team Providers Care Warehousing Technician Name Role Phone Roxanna Norman PCP Unavailable [...] Policy Number Policy Group Number Start Date [facility] - [facility] - [facility] Plan [facility] Comm [id number] N/A History of Encounters Visit Date Visit Type Provider 04/21/2015 Office visit Roxanna Norman MD 04/07/[address] SARAH NUÑEZ MD
--- OUTSIDE RECORDS SUMMARY | 2019-02-06 10:22 | XMS REPORT ---
Author Author Anjana Stein Organization [facility] Address [address] [place], [place] [phone] Care Team Providers Care Cooling Pipe Inspector Name Role Phone Anjana Stein PCP Unavailable [...] Policy Number Policy Group Number Start Date [facility] - [facility] - [facility] Comm [id number] N/A History of Encounters Visit Date Visit Type Provider 09/16/[address] Anjana Stein MD 08/25/2015 Office visit Giselle Gilman COUNTY ENGINEER 07/28/[address] Anjana Stein MD 06/30/2015 Office visit Giselle Gilman COUNTY ENGINEER 06/30/2015 Voided Roxanna Norman MD 06/04/2015 Office visit ROXANNA NORMAN MD 05/06/2015 Office visit ROXANNA NORMAN MD 04/21/2015 Office visit ROXANNA NORMAN MD 04/07/[address] SARAH NUÑEZ MD
--- OUTSIDE RECORDS SUMMARY | 2019-02-06 10:23 | XMS REPORT | Continuity of Care Document ---
Author Organization Unknown Address Unknown Allergies Active Description Code Type Severity Reaction Onset Reported/Identified Relationship to Patient Clinical Status Yes No Known Medication Allergies NKMA N/A N/A 11/03/2015 Medications There is no data. Problems Date Dx Coded Attending Type Code Diagnosis Diagnosed By 03/28/2008 V25.49 Surveillance Of Other Contraceptive Method 03/28/2008 V25.49 Surveillance Of Other Contraceptive Method 03/28/2008 V25.49 Surveillance Of Other Contraceptive Method 03/28/2008 JERZY HOLLEY DO V25.49 Surveillance Of Other Contraceptive Method 03/28/2008 JANEEN MENJIVAR APRN V25.49 Surveillance Of Other Contraceptive Method 03/29/2008 461.9 Sinusitis Acute 03/29/2008 784.0 Headache 03/29/2008 461.9 Sinusitis Acute 03/29/2008 784.0 Headache 03/29/2008 461.9 Sinusitis Acute 03/29/2008 784.0 Headache 03/29/2008 JERZY HOLLEY DO 461.9 Sinusitis Acute 03/29/2008 JERZY HOLLEY DO 784.0 Headache 03/29/2008 JANEEN MENJIVAR APRN 461.9 Sinusitis Acute 03/29/2008 JANEEN MENJIVAR APRN 784.0 Headache 10/21/2010 V72.42 Test Positive Result 10/21/2010 V72.42 Test Positive Result 10/21/2010 V72.42 Test Positive Result 10/21/2010 JERZY HOLLEY DO V72.42 Test Positive Result 10/21/2010 JANEEN MENJIVAR APRN V72.42 Test Positive Result 11/12/2010 V22.1 , Normal Other 11/12/2010 V22.1 , Normal Other 11/12/2010 V22.1 , Normal Other 11/12/2010 JERZY HOLLEY DO V22.1 , Normal Other 11/12/2010 JANEEN MENJIVAR APRN V22.1 , Normal Other 12/08/2010 V01.6 Contact With Or Exposure To Venereal Diseases 12/08/2010 V72.31 Imagery Analyst Exam, Routine 12/08/2010 V74.5 Std Screen 12/08/2010 V01.6 Contact With Or Exposure To Venereal Diseases 12/08/2010 V72.31 Imagery Analyst Exam, Routine 12/08/2010 V74.5 Std Screen 12/08/2010 V01.6 Contact With Or Exposure To Venereal Diseases 12/08/2010 V72.31 Imagery Analyst Exam, Routine 12/08/2010 V74.5 Std Screen 12/08/2010 JERZY HOLLEY DO V01.6 Contact With Or Exposure To Venereal Diseases 12/08/2010 JERZY HOLLEY DO V72.31 Imagery Analyst Exam, Routine 12/08/2010 JERZY HOLLEY DO V74.5 Std Screen 12/08/2010 JANEEN MENJIVAR APRN V01.6 Contact With Or Exposure To Venereal Diseases 12/08/2010 JANEEN MENJIVAR APRN V72.31 Imagery Analyst Exam, Routine 12/08/2010 JANEEN MENJIVAR APRN V74.5 Std Screen 01/06/2011 647.20 Compl Of - Std Unspecified 01/06/2011 647.20 Compl Of - Std Unspecified 01/06/2011 647.20 Compl Of - Std Unspecified 01/06/2011 JERZY HOLLEY DO 647.20 Compl Of - Std Unspecified 01/06/2011 JANEEN MENJIVAR APRN 647.20 Compl Of - Std Unspecified 02/03/2011 V74.5 Std Screen 02/03/2011 V74.5 Std Screen 02/03/2011 V74.5 Std Screen 02/03/2011 JERZY HOLLEY DO V74.5 Std Screen 02/03/2011 JANEEN MENJIVAR APRN V74.5 Std Screen 05/24/2011 V04.81 Flu Dx (3 Yrs And Above, Im) 05/24/2011 V04.81 Flu Dx (3 Yrs And Above, Im) 05/24/2011 V04.81 Flu Dx (3 Yrs And Above, Im) 05/24/2011 JERZY HOLLEY DO V04.81 Flu Dx (3 Yrs And Above, Im) 05/24/2011 JANEEN MENJIVAR APRN V04.81 Flu Dx (3 Yrs And Above, Im) 08/09/2011 V24.2 visit for: exam 08/09/2011 V45.51 control method - intrauterine device (IUD) 08/09/2011 V24.2 visit for: exam 08/09/2011 V45.51 control method - intrauterine device (IUD) 08/09/2011 V24.2 visit for: exam 08/09/2011 V45.51 control method - intrauterine device (IUD) 08/09/2011 JERZY HOLLEY DO V24.2 visit for: exam 08/09/2011 JERZY HOLLEY DO V45.51 control method - intrauterine device (IUD) 08/09/2011 JANEEN MENJIVAR APRN V24.2 visit for: exam 08/09/2011 JANEEN MENJIVAR APRN V45.51 control method - intrauterine device (IUD) 03/27/2013 305.1 TOBACCO ABUSE 03/27/2013 V25.01 CONTRACEPTION - ORAL CONTRACEPTION 03/27/2013 V25.12 IUD REMOVAL 03/27/2013 305.1 TOBACCO ABUSE 03/27/2013 V25.01 CONTRACEPTION - ORAL CONTRACEPTION 03/27/2013 V25.12 IUD REMOVAL 03/27/2013 JERZY HOLLEY DO 305.1 TOBACCO ABUSE 03/27/2013 JERZY HOLLEY DO V25.01 CONTRACEPTION - ORAL CONTRACEPTION 03/27/2013 JERZY HOLLEY DO V25.12 IUD REMOVAL 03/27/2013 JANEEN MENJIVAR APRN 305.1 TOBACCO ABUSE 03/27/2013 JANEEN MENJIVAR APRN V25.01 CONTRACEPTION - ORAL CONTRACEPTION 03/27/2013 JANEEN MENJIVAR APRN V25.12 IUD REMOVAL 04/16/2013 789.01 ABDOMINAL PAIN RIGHT UPPER QUADRANT 04/16/2013 JERZY HOLLEY DO 789.01 ABDOMINAL PAIN RIGHT UPPER QUADRANT 04/16/2013 JANEEN MENJIVAR APRN 789.01 ABDOMINAL PAIN RIGHT UPPER QUADRANT 10/22/2013 JANEEN MENJIVAR APRN 724.2 BACK PAIN, LOWER Procedures Code [place] [address] URINE TEST (IN-HOUSE) 03/27/2013 26262 IUD REMOVAL 03/28/2013 69401 ROUTINE VENIPUNCTURE 04/16/2013 43040 AMYLASE 04/16/2013 36639 LIPASE 04/16/2013 58888 CMP 04/16/2013 4853494 GFR CALC (RESULT ONLY) 04/16/2013 86004 CBC 04/16/2013 88814 XRAY LUMBAR SPINE 2 OR 3 VIEWS 10/22/2013 Results Test Result Range Urine Culture, Routine - 09/10/16 11:30 Urine Culture, Routine Note Encounters ACCT No. Visit Date/Time Discharge Status Pt. Type Provider Facility Loc./Unit Complaint [id number] 03/15/2016 09:36:43 03/15/2016 23:59:59 CLS Outpatient Piedad Bautista [id number] 02/02/2016 15:12:16 02/02/2016 23:59:59 CLS Outpatient Piedad Bautista [id number] 10/23/2015 16:23:02 10/23/2015 23:59:59 CLS Outpatient Anjana Stein [id number] 10/15/2015 11:48:02 10/15/2015 23:59:59 CLS Outpatient Piedad Bautista [id number] 10/09/2015 11:36:06 10/09/2015 23:59:59 CLS Outpatient Anjana Stein [id number] 09/16/2015 14:51:00 09/16/2015 23:59:59 CLS Outpatient Anjana Stein [id number] 08/26/2015 13:47:28 08/26/2015 23:59:59 CLS Outpatient Giselle Gilman [id number] 07/28/2015 16:55:38 07/28/2015 23:59:59 CLS Outpatient Pilar Steinanne [id number] 06/30/2015 17:57:18 06/30/2015 23:59:59 CLS Outpatient Paula Rivera [id number] 06/30/2015 17:23:31 06/30/2015 23:59:59 CLS Outpatient Giselle Gilman [id number] 06/04/2015 14:27:29 06/04/2015 23:59:59 CLS Outpatient Brian Hare [id number] 05/06/2015 14:25:31 05/06/2015 23:59:59 CLS Outpatient Brian Hare [id number] 04/21/2015 11:57:13 04/21/2015 23:59:59 CLS Outpatient Brian Hare [id number] 04/07/2015 10:12:25 04/07/2015 23:59:59 CLS Outpatient Brian Hare [id number] 10/22/2013 14:51:00 10/22/2013 23:59:59 CLS Outpatient JANEEN MENJIVAR APRN [id number] 06/25/2013 10:57:00 06/25/2013 23:59:59 CLS Outpatient LEYDI NEWMAN JERZY Andrea [id number] 04/16/2013 09:58:00 Document Registration [id number] 03/27/2013 09:31:00 Document Registration [id number] 08/09/2011 09:21:00 Document Registration [id number] 09/12/2016 16:05:00 Document Registration [id number] 11/03/2015 10:17:00 11/03/2015 23:59:00 DIS Outpatient Manas Urrutia [facility] S Luke MFM npv positive parvovirus lmp 7.25.15
--- OUTSIDE RECORDS SUMMARY | 2019-02-06 10:23 | XMS REPORT ---
Author Author Anjana Stein [facility] Address [address] [place], [place] [address] Care Team Providers Care Parts Washer Name Role Phone Anjana Stein PCP Unavailable [...] Vis Given Vis Pub CVX Tdap 11/06/2015 [employer] SK[employer] BOOSTRIX [id number] Intramuscular Left Deltoid 11/06/2015 [...] Policy Number Policy Group Number Start Date [facility] - [facility] Comm [id number] N/A History of Encounters Visit Date Visit Type Provider 11/18/[address] Anjana Stein MD 11/13/[address] Anjana Stein MD 11/06/[address] Anjana Stein MD 10/23/[address] Anjana Stein MD 10/15/2015 Laboratory Piedad VELASQUEZ 10/09/[address] Anjana Stein MD 09/16/[address] Anjana Stein MD 08/25/2015 Office visit Giselle Gilman CPC 07/28/[address] Anjana Stein MD 06/30/2015 Office visit Giselle Gilman CPC 06/30/2015 Voided Roxanna Norman MD 06/04/2015 Office visit ROXANNA NORMAN MD 05/06/2015 Office visit ROXANNA NORMAN MD 04/21/2015 Office visit ROXANNA NORMAN MD 04/07/[address] SARAH NUÑEZ MD
--- OUTSIDE RECORDS SUMMARY | 2019-02-06 10:23 | XMS REPORT ---
Author Author Giselle Gilman [facility] Address [address] [place], [place] [address] Care Team Providers Care Marketing Development Representative Name Role Phone Giselle Gilman PCP Unavailable [...] Start Date [facility] - [facility] - [facility] Comm [id number] N/A History of Encounters Visit Date Visit [...]
--- OUTSIDE RECORDS SUMMARY | 2019-02-06 10:23 | XMS REPORT ---
Author Author Piedad Bautista [facility] Address [address] [place], [place] [address] Care Team Providers Care Floral Clerk Name Role Phone Piedad Bautista PCP Allergies [...] by oral route 2 times a day Media 7.5-325 mg oral tablet 02/02/2016 take 1 tablet by oral route every 4- 6 hours as needed for pain Augmentin 875-125 mg oral tablet 02/02/2016 02/09/2016 take 1 tablet by oral route every 12 hours for 7 days Name Start Date Expiration [...] Vis Given Vis Pub CVX Tdap 11/06/2015 [employer] SK[employer] BOOSTRIX [id number] Intramuscular Left Deltoid 11/06/2015 [...] 4:30PM Dental abscess Feb 02 2016 2:19PM Payers Insurance Name Company Name Plan Name Plan Number Policy Number Policy Group Number Start Date [facility] - [facility] - Community Plan [facility] Comm [id number] N/A [facility] Community Plan of [facility] Comm Plan of [id number] N/A History of Encounters Visit Date Visit [...] Stein MD 08/25/2015 Office visit Giselle Gilman MULTIPLE DRUM SANDER HELPER 07/28/[address] Anjana Stein MD 06/30/2015 Office visit Giselle Gilman MULTIPLE DRUM SANDER HELPER 06/30/2015 Voided Roxanna Norman MD 06/04/2015 Office visit ROXANNA NORMAN MD 05/06/2015 Office visit ROXANNA NORMAN MD 04/21/2015 Office visit ROXANNA NORMAN MD 04/07/[address] SARAH NUÑEZ MD
[2019-02-06] MEDS ORDERED: OXYTOCIN/NORMAL SALINE 500 ML IV SCH ×2 (10:47→16:04)
[2019-02-06] MEDS ORDERED: SUFENTA 0.6MCG/ML BUPIVA 0.125 100 ML ONE (12:09)
--- NOTE | 2019-02-06 12:34 | NUR ---
1234 Home ESCOBAR CRNA here for epidural placement. Procedure explained, consent reviewed and signed by anesthesia. Questions answered to patient's satisfaction. Time out taken to verify correct patient/procedure. 1236 Patient up to side of bed, assisted into sitting position. 1240 Betadine prep done x3 and sterile drape applied. 1244 Local done, see anesthesia record. 1255 AND 1256 Test dose given, see anesthesia record for drug and dosage. Epidural catheter secured in place. Epidural placement complete. 1300 Assisted back into bed, monitors adjusted. Epidural dosed, see anesthesia record. Epidural of Sufenta/Bupvicaine @12cc/hr stated per pump. Patient tolerated procedure well.
[2019-02-06] MEDS ORDERED: fentaNYL INJECTION 100 MCG/2 ML AMP ONE (12:57)
[2019-02-06] MEDS ORDERED: LIDOCAINE/EPI 2% 1:200,00 (XYLOCAINE) 10 ML VIAL ONE (13:04)
[2019-02-06] MEDS ORDERED: LACTATED RINGERS 1,000 ML IV ONE (13:16)
[2019-02-06] MEDS ORDERED: METOCLOPRAMIDE INJ 10 MG/2 ML (REGLAN) IV PRN (13:30)
[2019-02-06] MEDS ORDERED: ONDANSETRON 4 MG/2 ML (SDV) Z0FRAN IV PRN (13:30)
[2019-02-06] MEDS ORDERED: EPIDURAL (SUFENTA 0.6MCG/ML BUPIVA 0.125%) 100 ML BAG EPI PRN (13:30)
[2019-02-06] MEDS ORDERED: NALOXONE 0.4 MG/ML 1 ML (NARCAN) VIAL IV PRN ×2 (13:30)
[2019-02-06] MEDS ORDERED: diphenhydrAMINE 50 MG/ML INJ (BENADRYL) IV PRN (13:30)
[2019-02-06] MEDS ORDERED: CATHETER FLUSH 10 ML SYR IV SCH ×2 (14:00→22:00)
[2019-02-06] MEDS ORDERED: LIDOCAINE 1% INJ 20 ML 20 ML VIAL ONE (15:23)
--- NOTE | 2019-02-06 16:07 | OB Labor & Delivery Record ---
Vag Delivery Note Vag Delivery Note Date of Delivery: 02/06/19 Preoperative Diagnosis: Linus Butt is a 28 /Para 5/ 4,Gestational Age 39 weeks for social induction and risk of rapid delivery Postoperative Diagnosis: Same Surgeon: SARAI HART Community Living Specialist: Jared Souza, MS III Anesthesia: epidural Delivery Type: vaginal Findings: Viable female infant, apgars 9/9, weight pending Lacerations: none Intact placenta with 3 vessel cord. No nuchal cord, the was a body cord delivered through and no shoulder dystocia Estimated Blood Loss: 150 ml Complications: None Condition: Stable Description of Procedure: The patient is a 28 year old female who presented for induction of labor. She was admitted and informed consent was obtained. Her labor course was remarkable for AROM , oxytocin augmentaiton, epidural. She progressed to complete dilatation and began to push. She was then set up for delivery. The infant's head was delivered atraumatically in the OA position. The shoulders and remainder of the infant's body were then delivered without difficulty. Upon delivery, the head was held below the level of the perineum and the mouth and nares were bulb suctioned. The cord was doubly clamped and cut and the infant was handed off to the pediatric staff. An intact placenta with 3-vessel cord delivered via Mine and there was found to be minimal bleeding.~ Vigorous fundal massage was performed and the fundus was found to be firm. IV oxytocin was given. Examination of the vagina and perineum revealed no laceration. Following the delivery, sponge, instrument and needle counts were correct. Mom and baby were both in stable condition in the labor suite. Vitals - Labs Vital Signs - I&O Vital Signs Date Time Temp Pulse Resp B/P (MAP) Pulse Ox O2 Delivery O2 Flow Rate FiO2 02/06/19 14:00 83 18 125/86 (99) 100 Room Air 02/06/19 13:45 86 18 112/61 (78) 100 Room Air 02/06/19 13:36 89 18 108/60 (76) 100 Room Air 02/06/19 13:30 84 18 99 Room Air 02/06/19 13:30 108/57 (74) Room Air 02/06/19 13:20 89 18 116/66 (83) Room Air 02/06/19 13:15 Room Air 02/06/19 13:14 83 18 116/61 (79) 98 Room Air 02/06/19 13:11 76 18 115/58 (77) Room Air 02/06/19 13:08 81 18 117/57 (77) 99 Room Air 02/06/19 13:05 78 18 126/62 (83) Room Air 02/06/19 13:02 78 18 129/82 (98) 98 Room Air 02/06/19 13:00 Room Air 02/06/19 12:59 103 18 124/74 (91) 99 Room Air 02/06/19 12:56 86 18 136/79 (98) Room Air 02/06/19 12:53 92 18 124/73 (90) 99 Room Air 02/06/19 12:50 95 18 123/70 (87) Room Air 02/06/19 12:47 89 18 123/69 (87) 99 Room Air 02/06/19 12:45 Room Air 02/06/19 12:44 95 18 128/72 (90) 99 Room Air 02/06/19 12:41 103 18 131/75 (93) Room Air 02/06/19 12:38 88 18 133/75 (94) 100 Room Air 02/06/19 12:31 89 18 124/71 (88) Room Air 02/06/19 12:30 85 18 117/66 (83) Room Air 02/06/19 12:15 70 18 105/56 (72) Room Air 02/06/19 12:00 87 18 112/61 (78) Room Air 02/06/19 11:30 98.0 85 18 118/65 (82) Room Air 02/06/19 11:18 80 18 112/58 (76) Room Air 02/06/19 11:02 78 18 115/62 (79) Room Air 02/06/19 07:53 88 18 109/57 (74) Room Air 02/06/19 07:20 97.9 Labs Laboratory Tests 02/06/19 07:45: White Blood Count 11.1H, Red Blood Count 3.46L, Hemoglobin 10.6L, Hematocrit 31L , Mean Corpuscular Volume 90, Mean Corpuscular Hemoglobin 31, Mean Corpuscular Hemoglobin Concent 34, Red Cell Distribution Width 13.5, Platelet Count 195, Mean Platelet Volume 10.8H, Neutrophils (%) (Auto) 68, Lymphocytes (%) (Auto) 22, Monocytes (%) (Auto) 9, Eosinophils (%) (Auto) 1, Basophils (%) (Auto) 0, Neutrophils # (Auto) 7.6, Lymphocytes # (Auto) 2.4, Monocytes # (Auto) 1.0, Eosinophils # (Auto) 0.1, Basophils # (Auto) 0.0 SARAI HART DO Feb 06, 2019 4:07 pm
[2019-02-06] MEDS ORDERED: TETANUS,DIPTH,PERTUSS P/F (BOOSTRIX) 0.5 ML VIAL IM ONE (16:15)
[2019-02-06] MEDS ORDERED: BENZOCAINE/MENTHOL (DERMOPLAST) 56 ML CAN TP PRN (16:15)
[2019-02-06] MEDS ORDERED: MEASLES,MUMPS,RUBELLA 1 EA INJ SQ ONE (16:15)
[2019-02-06] MEDS ORDERED: WITCH HAZEL(TUCKS) 40 EA JAR TOP PRN (16:15)
[2019-02-06] MEDS ORDERED: ACETAMINOPHEN 325 MG TABLET PO PRN (16:15)
[2019-02-06] MEDS: IBUPROFEN 600 MG (MOTRIN) TAB PO SCH (18:03)
--- NOTE | 2019-02-06 18:11 | NUR ---
REFER TO LABOR FLOW SHEET.
[2019-02-06] MEDS: DOCUSATE SODIUM 100 MG (COLACE) CAP PO SCH (21:33)
[2019-02-07] MEDS: IBUPROFEN 600 MG (MOTRIN) TAB PO SCH ×4 (00:10→18:10)
--- NOTE | 2019-02-07 00:10 | NUR ---
PT sleeping with nondistressed asleep in boppy next to pt. Education regarding sleep protocols, pt voiced understanding and needing to feed infant now, to mob for feeding.
[2019-02-07 02:20] VITALS: BP 85/47
[2019-02-07 05:30] LABS: BASOPHILS % (AUTO) 0 % (0-10); EOSINOPHILS # (AUTO) 0.1 10^3/uL (0.0-0.3); EOSINOPHILS % (AUTO) 1 % (0-10); HEMATOCRIT 28 % (35-52); HEMOGLOBIN 9.4 G/DL (11.5-16.0); LYMPHOCYTES # (AUTO) 2.8 X 10^3 (1.0-4.0); LYMPHOCYTES % (AUTO) 26 % (12-44); MEAN CORPUSCULAR HEMOGLOBIN 30 PG (25-34); MEAN CORPUSCULAR HGB CONC 33 G/DL (32-36); MEAN CORPUSCULAR VOLUME 91 FL (80-99); MEAN PLATELET VOLUME 10.7 FL (7.4-10.4); MONOCYTES # (AUTO) 1.1 X 10^3 (0.0-1.0); MONOCYTES % (AUTO) 10 % (0-12); NEUTROPHILS # (AUTO) 6.9 X 10^3 (1.8-7.8); NEUTROPHILS % (AUTO) 63 % (42-75); PLATELET COUNT 162 10^3/uL (130-400); RED CELL DISTRIBUTION WIDTH 13.1 % (10.0-14.5); WHITE BLOOD COUNT 10.9 10^3/uL (4.3-11.0)
[2019-02-07 05:56] VITALS: BP 109/64
[2019-02-07] MEDS ORDERED: PRENATAL VITAMIN 1 EA TAB PO SCH (07:00)
--- NOTE | 2019-02-07 07:56 | Anesthesia-Regional Post-Op ---
Regional Patient Condition Mental Status: Alert, Oriented x3 Circulation: Same as Pre-Op Headache: Absent Sensation: Full Recovery Motor Block: Absent Post Op Complications Complications None Follow Up Care/Instructions Patient Instructions None needed. Anesthesia/Patient Condition Patient is doing well, no complaints, stable vital signs, no apparent adverse anesthesia problems. No complications reported per nursing. TAYLOR ESCOBAR CRNA Feb 07, 2019 07:55
[2019-02-07] MEDS ORDERED: FERROUS SULF 325 MG (IRON) TAB PO SCH (08:00)
[2019-02-07 08:19] VITALS: BP 123/68
[2019-02-07] MEDS: DOCUSATE SODIUM 100 MG (COLACE) CAP PO SCH (08:25)
--- NOTE | 2019-02-07 08:30 | NUR ---
THIS RN TO PT'S BEDSIDE. Kristy MCDUFFIE NURSERY RN AT BEDSIDE FOR INFANT. VS OBTAINED. MEDS GIVEN PO; SEE EMAR FOR FURTHER. INITIAL SHIFT ASSESSMENT COMPLETED; SEE INTERVENTION FOR FURTHER. DR. CARRION TO BEDSIDE TO ASSESS . SHOWER SET UP. NO NEEDS OR QUESTIONS VOICED AT THIS TIME. CALL LIGHT WITHIN REACH. PT DOES HAVE AN AREA OF CONCERN ON HER LEGS BILATERALLY. PT VOICES THAT IS WAS A RASH THAT APPEARED DURING HER THIRD AND IT HAS NEVER GONE AWAY. DR. HART IS AWARE.
--- NOTE | 2019-02-07 10:00 | NUR ---
PT UP IN THE SHOWER. S/O AND AT THE BEDSIDE. NO NEEDS VOICED.
[2019-02-07 12:34] VITALS: BP 114/72
--- NOTE | 2019-02-07 12:35 | NUR ---
PT IN BED; S/O, DAUGHTER AND AT THE BEDSIDE. VS OBTAINED. ROUTINE MOTRIN GIVEN PO; SEE EMAR FOR FURTHER. NO NEEDS VOICED.
--- NOTE | 2019-02-07 14:22 | NUR ---
PT UP IN ROOM, ON THE PHONE. S/O, ALL OF HER OTHER CHILDREN AND INFANT AT THE BEDSIDE. NO NEEDS VOICED.
[2019-02-07 16:57] VITALS: BP 121/62
--- NOTE | 2019-02-07 16:57 | NUR ---
PT IN BED, ON THE PHONE. S/O, DAUGHTER AND AT THE BEDSIDE. VS OBTAINED. PACK OF DIAPERS PROVIDED PER REQUEST. NO FURTHER NEEDS VOICED. CALL LIGHT WITHIN REACH.
[2019-02-07] MEDS ORDERED: IBUP-844 PO (17:16)
[2019-02-07] MEDS ORDERED: FERR325T18 PO (17:16)
[2019-02-07] MEDS ORDERED: ACET325T49 PO (17:16)
--- NOTE | 2019-02-07 17:18 | Discharge Inst-Women's Service ---
Discharge Inst-Women's Serv Depart Medication/Instructions New, Converted or Re-Newed RX: RX on Chart Final Diagnosis induction Vaginal delivery Consults/Follow Up Additional Follow Up: Yes Activity Activity: Activity as Tolerated Driving Instructions: You May Drive NO SMOKING: NO SMOKING Nothing Inside Vagina: No Douching, No New Home, No Tampons Diet Discharge Diet: No Restrictions Symptoms to Report to : Bleeding Excessive, Pain Increased, Fever Over 101 Degrees F, Vaginal Bleeding Increase, Cramps in Feet or Legs, Vaginal Discharge Foul For Any Problems or Questions: Contact Your Physician Skin/Wound Care Bathing Instructions: SARAI Linares DO Feb 07, 2019 17:18
--- NOTE | 2019-02-07 18:13 | NUR ---
DISCHARGE PAPERS PROVIDED AND REVIEWED WITH PT, PT VERBALIZES UNDERSTANDING AND DENIES ANY QUESTIONS AT THIS TIME. PAPER SIGNED.
--- NOTE | 2019-02-07 18:30 | NUR ---
PT DISCHARGED FROM -311 TO [facility] VIA AMBULATORY IN STABLE CONDITION ACC BY THIS RN, S/O, DAUGHTER, AND INFANT.
--- NOTE | 2019-02-07 18:40 | NUR ---
RX X3 CALLED INTO [facility] PER THIS RN. SPOKE TO GER, PHARMACIST.
== END 2019-02-07 18:30 | disposition home or self-care (01) | DRG 807 ==
LOC: LDRP 07:12
PROVIDERS: ADMIT Obstetrics & Gynecology; ATTEND Obstetrics & Gynecology
PROC: 10E0XZZ Delivery of Products of Conception, External Approach (ICD-10-PCS; principal; 2019-02-06)
PROC: 3E033VJ Introduction of Other Hormone into Peripheral Vein, Percutaneous Approach (ICD-10-PCS; 2019-02-06)
DX: O69.82X0 Labor and delivery complicated by other cord entanglement, without compression, not applicable or unspecified (principal); O99.334 Smoking (tobacco) complicating childbirth; F17.210 Nicotine dependence, cigarettes, uncomplicated; Z37.0 Single live birth; Z3A.39 39 weeks gestation of pregnancy
CPT/HCPCS: 36415; 85025; 86850; 86900; 86901